=== PATIENT | female | born 1935 | race Caucasian/White ===

== ENCOUNTER 2016-07-14 17:14 | Inpatient (IN) | payer OTHER ==
[~2016-07-14] VITALS: Ht 160 cm; Wt 55.5 kg
[~2016-07-14 17:14] MED LIST: ASPIRIN81 M1; ASPIRIN81 M1 PO; CIPRO250 MG PO; FISH OIL CONC1000 M2 PO; INDAPAMIDE2.5 MG; INDAPAMIDE2.5 MG PO; LASIX20 MG PO; LASIX40 MG; LASIX40 MG PO; LOPRESSOR25 MG; METOPROLOL SUCC25 M2 PO; POTASSIUM; POTASSIUM CHLO25 MEQ PO; PRILOSEC20 M1 PO; PRILOSEC20 MG; VITAMIN E100 UNIT PO; ZOCOR20 MG; ZOCOR20 MG PO
[2016-07-14 17:31] VITALS: BP 132/80
[2016-07-14 17:57] LABS: BASO # 0.1 10*3/uL (0.0-0.1); BASO % 0.3 % (0.0-1.0); EOS % 0.1 % (1.0-4.0); HEMATOCRIT 37.7 % (37.0-47.0); HEMOGLOBIN 12.9 g/dl (12.0-16.0); IG # 0.1 10*3/uL (0.0-0.1); LYMPH # 1.7 10*3/uL (1.3-4.4); LYMPH % 9.7 % (27.0-41.0); MEAN CELL VOLUME 89.1 fl (81.0-99.0); MEAN CORPUSCULAR HGB 30.5 pg (27.0-31.0); MEAN CORPUSCULAR HGB CONC 34.2 g/dl (33.0-37.0); MEAN PLATELET VOLUME 10.4 fl (9.6-12.3); MONO # 1.3 10*3/uL (0.1-1.0); MONO % 7.6 % (3.0-9.0); NEUT # 14.1 10*3/uL (2.3-7.9); NEUT % 81.8 % (47.0-73.0); PLATELET COUNT AUTOMATED 223 10*3/uL (130-400); RED BLOOD COUNT 4.23 10*6/uL (4.10-5.10); RED CELL DISTRI WIDTH 12.8 % (0-14.5); WHITE BLOOD COUNT 17.2 10*3/uL (4.8-10.8)
[2016-07-14] MEDS ORDERED: INDOMETHACIN25 M1 PO (18:12)
[2016-07-14 18:14] LABS: ALBUMIN 3.5 gm/dl (3.1-4.5); ALKALINE PHOSPHATASE 107 U/L (45-117); BUN 15 mg/dl (7-24); CARBON DIOXIDE 27 mmol/L (21-32); CHLORIDE 95 mmol/L (98-107); EST GLOM FILT AFRICAN AMERICAN > 60 ml/min; GLUCOSE 108 mg/dL (65-99); POTASSIUM 4.1 mmol/L (3.5-5.1); SGOT/AST 14 IU/L (3-35); SGPT/ALT 11 U/L (12-78); SODIUM 131 mmol/L (136-145); TOTAL PROTEIN 7.9 gm/dL (6.4-8.2)
[2016-07-14 18:17] LABS: TROPONIN I < 0.015 ng/ml (<0.045)
[2016-07-14 19:00] VITALS: BP 128/82
[2016-07-14 20:45] VITALS: BP 161/90
[2016-07-14 21:17] VITALS: BP 161/90
[2016-07-15] VITALS: BP 120/51
[2016-07-15 00:29] LABS: CPK 38 U/L (26-192)
[2016-07-15 00:32] LABS: CKMB < 0.5 ng/ml (0.5-3.6); TROPONIN I < 0.015 ng/ml (<0.045)
[2016-07-15 06:08] LABS: CKMB 0.6 ng/ml (0.5-3.6); CPK 35 U/L (26-192)
[2016-07-15 06:09] LABS: HEMATOCRIT 36.5 % (37.0-47.0); HEMOGLOBIN 12.3 g/dl (12.0-16.0); MEAN CELL VOLUME 90.1 fl (81.0-99.0); MEAN CORPUSCULAR HGB 30.4 pg (27.0-31.0); MEAN CORPUSCULAR HGB CONC 33.7 g/dl (33.0-37.0); MEAN PLATELET VOLUME 10.4 fl (9.6-12.3); PLATELET COUNT AUTOMATED 204 10*3/uL (130-400); RED BLOOD COUNT 4.05 10*6/uL (4.10-5.10); RED CELL DISTRI WIDTH 12.8 % (0-14.5); TROPONIN I < 0.015 ng/ml (<0.045); WHITE BLOOD COUNT 10.8 10*3/uL (4.8-10.8)
[2016-07-15 06:26] LABS: HEMOGLOBIN A1c 5.1 % (4.8-5.6)
[2016-07-15 06:36] LABS: BUN 14 mg/dl (7-24); CARBON DIOXIDE 27 mmol/L (21-32); CHLORIDE 99 mmol/L (98-107); CHOLESTEROL 108 mg/dL (<200); EST GLOM FILT AFRICAN AMERICAN > 60 ml/min; FREE T4 1.36 ng/dl (0.76-1.46); GLUCOSE 161 mg/dL (65-99); HDL CHOLESTEROL 49 mg/dl (40-60); LDL CHOLESTEROL 47 mg/dL (9-159); LYMPHOCYTE # 0.5 10*3/uL (1.3-4.4); MAGNESIUM 1.8 mg/dL (1.5-2.1); MONOCYTE # 0.1 10*3/uL (0.1-1.0); NEUTROPHIL # 10.2 10*3/uL (2.3-7.9); NEUTROPHILS 94 % (47-73); PLATELET SUFFICIENCY NORMAL (NORMAL); POTASSIUM 3.5 mmol/L (3.5-5.1); SODIUM 136 mmol/L (136-145); TOTAL CELLS COUNTED 100 #CELLS; TRIGLYCERIDES 62 mg/dl (<150); VLDL CHOLESTEROL 12 mg/dL (6-40)
[2016-07-15 06:44] LABS: FOLIC ACID 13.31 ng/mL (>5.38); VITAMIN D, 25-HYDROXY 4.7 ng/mL (30-100)
[2016-07-15 08:00] VITALS: BP 115/53
[2016-07-15 12:00] VITALS: BP 145/56
[2016-07-15 16:00] VITALS: BP 123/46
[2016-07-15 20:00] VITALS: BP 135/78
[2016-07-16] VITALS: BP 138/67
[2016-07-16 08:00] VITALS: BP 137/53
[2016-07-16 12:00] VITALS: BP 135/68
[2016-07-16 16:00] VITALS: BP 160/69
[2016-07-16 20:00] VITALS: BP 120/76; BP 89/65
[2016-07-17] VITALS: BP 130/72
[2016-07-17 08:00] VITALS: BP 124/88
[2016-07-17 12:00] VITALS: BP 114/87
[2016-07-17] MEDS ORDERED: DULE1ARO INH (13:59)
[2016-07-17] MEDS ORDERED: VITAMIN D50000 I3 PO (13:59)
[2016-07-17] MEDS ORDERED: PREDNISONE10 MG PO (13:59)
[2016-07-17] MEDS ORDERED: BENZONATATE100 M1 PO (13:59)
[2016-07-17] MEDS ORDERED: LEVOFLOXACIN500 MG PO (13:59)
[2016-07-17] MEDS ORDERED: VENTOLIN H0.09 MG/AC INH (13:59)
== END 2016-07-17 15:50 | disposition home or self-care (01) | DRG 871 ==
LOC: ED 17:14 → EDHOLD 19:59 → 5E 19:59
PROVIDERS: Internal Medicine; Registered Nurse
DX: A41.9 Sepsis, unspecified organism (principal); J18.9 Pneumonia, unspecified organism; I11.0 Hypertensive heart disease with heart failure; Z95.1 Presence of aortocoronary bypass graft; I50.9 Heart failure, unspecified; E87.1 Hypo-osmolality and hyponatremia; I25.810 Atherosclerosis of coronary artery bypass graft(s) without angina pectoris; Z90.710 Acquired absence of both cervix and uterus; J45.909 Unspecified asthma, uncomplicated; E55.9 Vitamin D deficiency, unspecified; Z82.49 Family history of ischemic heart disease and other diseases of the circulatory system; Z79.82 Long term (current) use of aspirin; Z79.899 Other long term (current) drug therapy

== ENCOUNTER → 2016-12-04 | Outpatient (CLI) | payer OTHER ==
[~2016-12-04] MED LIST changes: +BENZONATATE100 M1 PO; +DULE1ARO INH; +INDOMETHACIN25 M1 PO; +LEVOFLOXACIN500 MG PO; +PREDNISONE10 MG PO; +VENTOLIN H0.09 MG/AC INH; +VITAMIN D50000 I3 PO
== END | disposition home or self-care (01) ==
LOC: RAD 12:42
DX: I70.0 Atherosclerosis of aorta (principal); J98.4 Other disorders of lung; Z95.1 Presence of aortocoronary bypass graft

== ENCOUNTER 2016-12-19 18:00 | Inpatient (IN) | payer OTHER ==
[~2016-12-19] VITALS: Ht 165.1 cm; Wt 58.6 kg
[2016-12-19 18:02] VITALS: BP 182/87
[2016-12-19 18:30] LABS: BASO % 0.4 % (0.0-1.0); EOS # 0.1 10*3/uL (0.0-0.4); EOS % 1.5 % (1.0-4.0); HEMATOCRIT 38.6 % (37.0-47.0); HEMOGLOBIN 13.4 g/dl (12.0-16.0); LYMPH # 2.2 10*3/uL (1.3-4.4); LYMPH % 23.6 % (27.0-41.0); MEAN CELL VOLUME 89.8 fl (81.0-99.0); MEAN CORPUSCULAR HGB 31.2 pg (27.0-31.0); MEAN CORPUSCULAR HGB CONC 34.7 g/dl (33.0-37.0); MEAN PLATELET VOLUME 10.3 fl (9.6-12.3); MONO # 0.6 10*3/uL (0.1-1.0); NEUT # 6.1 10*3/uL (2.3-7.9); NEUT % 67.2 % (47.0-73.0); PLATELET COUNT AUTOMATED 218 10*3/uL (130-400); RED CELL DISTRI WIDTH 12.5 % (0-14.5); WHITE BLOOD COUNT 9.1 10*3/uL (4.8-10.8)
[2016-12-19 18:40] LABS: ACT PARTIAL THROMBO TIME 25.4 SECONDS (20.8-31.5)
[2016-12-19 18:45] VITALS: BP 141/82
[2016-12-19 18:46] LABS: ALBUMIN 3.5 gm/dl (3.1-4.5); ALKALINE PHOSPHATASE 101 U/L (45-117); BUN 15 mg/dl (7-24); CHLORIDE 98 mmol/L (98-107); CKMB 1.8 ng/ml (0.5-3.6); CPK 32 U/L (26-192); LIPASE 203 U/L (73-393); MAGNESIUM 1.8 mg/dL (1.5-2.1); POTASSIUM 4.1 mmol/L (3.5-5.1); SGOT/AST 16 IU/L (3-35); SGPT/ALT 11 U/L (12-78); SODIUM 134 mmol/L (136-145); TOTAL PROTEIN 7.7 gm/dL (6.4-8.2)
[2016-12-19 18:48] LABS: TROPONIN I < 0.015 ng/ml (<0.045)
[2016-12-19 19:31] VITALS: BP 147/71
[2016-12-19 20:59] VITALS: BP 175/67
[2016-12-19 21:10] VITALS: BP 175/67
[2016-12-20] VITALS: BP 99/58
[2016-12-20] MEDS ORDERED: RIVASTIGMINE TAR6 M1 PO (00:34)
[2016-12-20 06:19] LABS: BASO % 0.2 % (0.0-1.0); HEMATOCRIT 39.1 % (37.0-47.0); HEMOGLOBIN 13.5 g/dl (12.0-16.0); LYMPH # 0.9 10*3/uL (1.3-4.4); LYMPH % 16.3 % (27.0-41.0); MEAN CELL VOLUME 90.7 fl (81.0-99.0); MEAN CORPUSCULAR HGB 31.3 pg (27.0-31.0); MEAN CORPUSCULAR HGB CONC 34.5 g/dl (33.0-37.0); MEAN PLATELET VOLUME 10.8 fl (9.6-12.3); MONO # 0.1 10*3/uL (0.1-1.0); MONO % 1.2 % (3.0-9.0); NEUT # 4.7 10*3/uL (2.3-7.9); NEUT % 81.6 % (47.0-73.0); PLATELET COUNT AUTOMATED 236 10*3/uL (130-400); RED BLOOD COUNT 4.31 10*6/uL (4.10-5.10); RED CELL DISTRI WIDTH 12.6 % (0-14.5); WHITE BLOOD COUNT 5.8 10*3/uL (4.8-10.8)
[2016-12-20 06:38] LABS: ALBUMIN 3.3 gm/dl (3.1-4.5); BUN 14 mg/dl (7-24); CHLORIDE 99 mmol/L (98-107); CHOLESTEROL 149 mg/dL (<200); CREATININE 0.69 mg/dL (0.55-1.02); MAGNESIUM 2.1 mg/dL (1.5-2.1); SGOT/AST 15 IU/L (3-35); SGPT/ALT 11 U/L (12-78); SODIUM 137 mmol/L (136-145); TOTAL PROTEIN 7.6 gm/dL (6.4-8.2); TRIGLYCERIDES 61 mg/dl (<150); VLDL CHOLESTEROL 12 mg/dL (6-40)
[2016-12-20 06:45] LABS: ALKALINE PHOSPHATASE 101 U/L (45-117); HDL CHOLESTEROL 43 mg/dl (40-60); LDL CHOLESTEROL 94 mg/dL (9-159); THYROID STIM HORMONE (HS) 0.801 uIU/ml (0.358-4.75)
[2016-12-20 06:56] LABS: ACT PARTIAL THROMBO TIME 24.5 SECONDS (20.8-31.5)
[2016-12-20 08:00] VITALS: BP 112/58; BP 139/73
[2016-12-20 12:00] VITALS: BP 153/77
[2016-12-20 16:00] VITALS: BP 152/64
[2016-12-20 20:00] VITALS: BP 135/70
[2016-12-21] VITALS: BP 129/74
[2016-12-21 08:00] VITALS: BP 122/58; BP 153/43
== END 2016-12-21 11:32 | disposition short-term general hospital (02) | DRG 194 ==
LOC: ED 18:00 → EDHOLD 19:15 → 5E 20:05
PROVIDERS: Emergency Medicine; Hospitalist; ADMIT Internal Medicine
DX: J18.9 Pneumonia, unspecified organism (principal); J45.901 Unspecified asthma with (acute) exacerbation; E87.2 Acidosis; J96.10 Chronic respiratory failure, unspecified whether with hypoxia or hypercapnia; I11.0 Hypertensive heart disease with heart failure; I50.32 Chronic diastolic (congestive) heart failure; E87.1 Hypo-osmolality and hyponatremia; I25.118 Atherosclerotic heart disease of native coronary artery with other forms of angina pectoris; E55.9 Vitamin D deficiency, unspecified; R91.1 Solitary pulmonary nodule; Z99.81 Dependence on supplemental oxygen; Z95.1 Presence of aortocoronary bypass graft; Z82.49 Family history of ischemic heart disease and other diseases of the circulatory system

== ENCOUNTER → 2016-12-31 | Outpatient (CLI) | payer OTHER ==
[~2016-12-31] MED LIST changes: +RIVASTIGMINE TAR6 M1 PO
== END | disposition home or self-care (01) ==
LOC: RAD 08:29
DX: K44.9 Diaphragmatic hernia without obstruction or gangrene (principal)

== ENCOUNTER 2017-02-20 10:01 | Inpatient (IN) | payer OTHER ==
[~2017-02-20] VITALS: Ht 167.6 cm; Wt 58.2 kg
--- NOTE | ~2017-02-20 | DS ---
[place], [place] DISCHARGE SUMMARY NAME: SHERIN WILLARD [facility] #: [id number] UNIT #: [id number] ROOM: 415 DOCTOR: MUSTAPHA MARIANO MD BIRTHDATE: [birth year] DOS: 02/21/2017 DISCHARGE DIAGNOSES: 1. Loculated pleural fluid in the right lower lobe. 2. History of large hiatal hernia, status post endoscopic surgery at [facility] recently. 3. History of coronary artery disease of kake vessels. 4. Chronic hyponatremia. 5. Chronic respiratory failure and centrilobular emphysema. 6. History of solitary pulmonary nodule in the past. 7. Vitamin D deficiency. 8. Benign essential hypertension. 9. Chronic diastolic type congestive heart failure. 10. Coronary artery disease of kake vessels without chest pains. HOSPITAL COURSE: The patient presented to the Emergency Department at [facility] [place] [facility] for some complains of shortness of breath. The patient was found to have pulse ox of 80% at room air. The patient was admitted and now she is saturating 99% at room air. The patient was evaluated for hypoxemia at admission with CT angiogram, which showed no pulmonary embolism, but shows loculated right lower lobe pleural effusion. This was evaluated by Dr. Tomlinson, the relay shop tester, and he has recommended that the patient should be sent back to the [facility] for treatment of this loculated pleural fluid because it is very complex. call was made to [facility] and they will accept the patient when they have a bed available. The patient in a stable condition to be transferred, vital signs are stable and she is asymptomatic now except for generalized weakness. Leukocytosis from urinary tract infection and pneumonitis to be treated with antibiotics. White cell count of 12,000. Lactic acid level elevation is normalized with hydration. Old age and adult failure to thrive. The patient worked with physical therapy. Coronary artery disease of kake vessels without chest pains. Chronic diastolic type CHF, compensated. Large hiatal hernia, status post endoscopic surgery at [facility] recently. We took bedsore precaution including every 2-hour turning and using an air mattress. LABORATORY DATA: White cell count of 12,200, normal H and H. CT angiogram results as mentioned above. Lactic acid level was 3 and improved with hydration with IV fluids. No signs of sepsis. DISCHARGE MANAGEMENT: Lovenox 40 mg subQ daily, furosemide 20 mg a day, potassium chloride 20 mEq daily, aspirin 81 mg a day, omeprazole 20 mg a day, simvastatin 40 mg a day. The patient on clindamycin 800 mg IV every 6 hours, [place], [place] DISCHARGE SUMMARY NAME: SHERIN WILLARD UNIT #: [id number] ROOM: 415 DOCTOR: MUSTAPHA MARIANO MD BIRTHDATE: [birth year] ceftriaxone 1 g daily. Plan to transfer to [facility] when the bed is available. MUSTAPHA MARIANO MD CM:TINA [id number] MUSTAPHA MARIANO MD 02/21/171955 interface
--- NOTE | ~2017-02-20 | CON ---
[place], [place] REPORT OF CONSULTATION NAME: SHERIN WILLARD [facility] #: [id number] UNIT #: [id number] ROOM: 415 DOCTOR: DIRK CHAPMAN MD,DEMOND BIRTHDATE: [birth year] DOS: 02/21/2017 CONSULTATION REQUESTED BY: Dr. Singh for the assessment of recurrent acute respiratory failure and abnormal finding in CT scan of the chest. History was obtained for the patient from the patient's son directly as the patient was noted as a poor historian. HISTORY OF PRESENT ILLNESS: This is an 81-year-old white female patient who has been known with history of hiatal hernia, has been admitted in [facility] over a week ago. The patient remained in the hospital for 4 days, underwent laparoscopic hiatal hernia repair as per son. The patient stayed in the hospital for 4 days and discharged home six days ago. She has been sent home with home health services. The patient reported symptoms of coughing, some shortness of breath during her hospitalization with clear sputum expectoration noted with cough. As the patient came home, she has been noted with increased shortness of breath. She was also noted increased sputum expectoration described some with purulent and progressive increased shortness of breath. Home health nurses has been assessing the patient. I recommended the patient to be brought to the hospital. The patient presented to the Emergency Room and was assessed in the ER. The patient's oxygen saturation noted 80% on room air upon arrival as assessed by the EMS. The patient was started on oxygen supplementation nasal cannula with the improvement in the oxygen saturation. She was also given one breathing treatment as well. The patient denies symptoms of chest pain. Denies symptoms of hemoptysis. The patient had a CTA of the chest done after hospitalization to rule out pulmonary embolism. The pulmonary embolism was excluded. Some other abnormal finding described in the CT scan of the chest would be noted in the lateral part of the consultation. She does have symptoms of shortness of breath which were ____ partly decreased from yesterday. Denies symptoms of hemoptysis or chest pain. Denies symptoms of rather hemoptysis. She does complain of pain which she described in the right side of the chest intermittently in the past 48 hours. The pain was described mild to moderate, pleuritic at times without any radiation. REVIEW OF SYSTEMS: CONSTITUTIONAL: Fatigue and tiredness noted without symptoms of fever or chills. EYES: Denies any burning, redness, or tenderness. EARS, NOSE, THROAT SYMPTOMS: Denies sore throat, hoarseness, otalgia, postnasal drainage or epistaxis. CARDIOVASCULAR: Denies anginal pain, edema or pain of the lower extremities. GASTROINTESTINAL: Dysphagia, nausea, vomiting, diarrhea, abdominal pain, hematemesis, melena or abnormal weight loss. SKIN: Denies any lesions or rashes. GENITOURINARY: Denies dysuria, suprapubic pain, hematuria. MUSCULOSKELETAL: Denies any acute joint pain. CENTRAL NERVOUS SYSTEM: Denies dizziness, headache, diplopia or syncopal episodes. Remaining systems were reviewed with the patient, they were noted to be all [place], [place] REPORT OF CONSULTATION NAME: SHEIRN WILLARD UNIT #: [id number] ROOM: [facility] DOCTOR: DEMOND HUANG MD BIRTHDATE: [birth year] negative. PAST MEDICAL HISTORY: 1. Reported as history of coronary artery disease. 2. Essential hypertension. 3. Previous pneumonia and hyponatremia. 4. Large hiatal hernia, laparoscopic surgical repair. 5. Vitamin D deficiency. 6. History reported for congestive heart failure. 7. History of congestive heart failure with some diastolic dysfunction reported for the patient's last echocardiogram in July 2016. PAST SURGICAL HISTORY: 1. Reported as history of coronary artery bypass graft. 2. Laparoscopic surgical repair was done in February 2017 in [facility]. SOCIAL HISTORY: The patient is currently , has 2 children. Denies history of alcohol use or any illicit drug use. She has smoked cigarettes only for a year or 2 when she was quite young. The patient has not smoked any cigarettes since the past 50 years. FAMILY HISTORY: The patient's father at the age of 48 over an industrial accident. The mother at the age of 6363 years old, complication related to the congestive heart failure. HOME MEDICATIONS: Reported the patient on admission use of albuterol sulfate, aspirin, vitamin D, Dulera, Lasix, metoprolol tartrate, Prilosec, rivastigmine, and simvastatin. DRUG ALLERGIES: Noted no known drug allergies. PHYSICAL EXAMINATION: GENERAL: This is an 81-year-old elderly female currently noted without any acute distress, getting oxygen supplementation nasal cannula. Height recorded on current admission height of 5 feet 6 inches, weight of 130 pounds. VITAL SIGNS: Normal temperature, respiratory rate 18-22, heart rate 74-77, blood pressure 139/71-148/70. Pulse oxygen saturation on 4 liters nasal cannula 99% saturation recorded. HEENT: Examination shows head was atraumatic. Eyes: No icterus. NECK: Supple. CARDIOVASCULAR: S1, S2 audible. LUNGS: Decreased breaths are noted in the left mid and lower portion of the lung. There were no crackles or wheezing heard. ABDOMEN: Soft, nontender. Bowel sounds present. EXTREMITIES: Noted without any edema, clubbing or cyanosis. CENTRAL NERVOUS SYSTEM: Cranial nerves 2-12 intact. No focal deficits. MUSCULOSKELETAL: No deformities. SKIN: No lesions or rashes. [place], [place] REPORT OF CONSULTATION NAME: SHERIN WILLARD UNIT #: [id number] ROOM: [facility] DOCTOR: ASHLI HUANG MDM BIRTHDATE: [birth year] LABORATORY DATA: CBC was done on admission yesterday in the Emergency Room noted essentially as normal. Lactic acid yesterday noted 3 and followup was 2.5. PT/PTT yesterday noted as normal. CMP was done just a normal BUN and creatinine. Sodium 133, chloride 94, remaining CMP normal. The influenza A and B, nasal washing antigens were negative. CBC of this morning, WBC count 12.2, hemoglobin 12, hematocrit 35.6, platelet count was normal. The chest x-ray was done yesterday was reviewed, does not show any major acute infiltration. Mild cardiomegaly was visible. Postoperative coronary artery bypass grafting changes. CT of the chest that was completed yesterday recorded by Dr. Singh reviewed, shows a large collection of the fluid was noted in the right lower lung with a subpulmonic effusion or extension around the previous site of hernia seen. However, significant hiatal hernia was still noted at the present time, which was noted large. Changes of bronchiectasis noted. Upper lungs noted with apical pulmonary fibrotic changes. The CT scan of the chest was compared to the previous CT scan of the chest that was done during admission in December on 12/20/2016 reviewed. At that time, the patient was noted very large hiatal hernia ____ about half or more of the right chest with area of compression atelectasis. The findings were noted. The current CT scan does show significant reduction in previously noted hiatal hernia. IMPRESSION: 1. The patient who has been currently admitted to the hospital with recurrent symptoms and signs suggestive of definitive acute pneumonia. Fluid is present, it is related to past surgical as collection postsurgery from the pneumonia would be considered complicated effusion. Ultrasound of the chest was performed at the bedside, shows multiloculated pleural present in the right lower chest. Diaphragm was not able to be well visualized. 2. Status post hiatal hernia repair, certainly noted small in the size of hiatal hernia, reexpansion of the lung on the right side. However, the moderate to large hiatal hernia was still visible. 3. The patient with history of past coronary artery disease as well. 4. Lactic acidosis related to the possibility of acute sepsis secondary to acute pneumonia or pleural fluid to be considered with possible consideration of complicated pleural fluid, rule out empyema as well. 5. Acute severe hypoxic respiratory failure secondary to above, currently being treated with oxygen supplementation. PLAN OF MANAGEMENT: The patient will be continued on the antibiotics as previously ordered. She would be considered for transfer back to the [facility] to be further assessed for current pleural fluid, which seemed to be very complicated. Further intervention to be done, possible use of the CT guidance, ultrasound guidance by another specialist. I am not comfortable placing a chest tube with doing thoracentesis of the current finding noted on the CT scan of the chest appearance. The patient would be added on treatment for the anaerobic coverage with addition of the clindamycin that will also give further coverage for the gram-positive organisms. The assessment and management has been discussed with the patient's son in detail on the phone. He was agreeable for the transfer. The case was also discussed with Dr. Singh about consideration of transfer to [facility]. The arrangements will be made for transfer to [facility]. Other supportive therapy, [place], [place] REPORT OF CONSULTATION NAME: SHERIN WILLARD UNIT #: [id number] ROOM: 415 DOCTOR: DIRK CHAPMAN MD,DEMOND BIRTHDATE: [birth year] plan of management and care. Usual medical management, other therapies. The clindamycin has been ordered as every 6 hours for anaerobic coverage. Thank you for allowing me to participate in the care of this patient. DEMOND CAVAZOS MD CM:CONSTR:REPORT OF CONSULTATION 1309 02/22/17 0631 interface
--- NOTE | ~2017-02-20 | EKG ---
[place], [place] ELECTROCARDIOGRAM REPORT NAME: SHERIN WILLARD UNIT #: [id number] ROOM: 415 DOCTOR: DIRK CHAPMAN MD,DEMOND BIRTHDATE: [birth year] DOS: 02/20/2017 TIME: 10:13 a.m. Normal sinus rhythm were noted with a heart rate of 86 beats per minute. The EKG were noted ____. Poor R-wave progression noted in the ____ chest leads for this patient as well. Nonspecific intraventricular conduction defect was also noted. Prolonged QTC interval was noted for the patient as well with QTC interval of more than 500 msec. Left axis deviation was also noted. DEMOND CAVAZOS MD CM:EKGRPT:ELECTROCARDIOGRAM REPORT [id number] 1430 DEMOND CHAPMAN MD
--- NOTE | ~2017-02-20 | WRIGHTHP ---
[place], [place] PATIENT HISTORY AND PHYSICAL EXAM NAME: SHERIN WILLARD [facility] #: [id number] UNIT #: [id number] ROOM: 415 DOCTOR: MUSTAPHA MARIANO MD BIRTHDATE: [birth year] DOS: 02/20/2017 HISTORY OF PRESENT ILLNESS: The patient is an 81-year-old female with past medical history of bronchial asthma, reactive airway disease, chronic diastolic type CHF, benign essential hypertension, coronary artery disease of [place] vessels, hyponatremia, chronic respiratory failure, oxygen dependence, history of solitary pulmonary nodule, vitamin D deficiency, benign essential hypertension. The patient presented to the Emergency Department with increasing shortness of breath starting yesterday with cough and purulent sputum. The patient was seen in the Emergency Department at [facility] for increasing shortness of breath and her pulse ox was 80% on room air. The patient recently had surgery for hiatal hernia at [facility]. The patient was diagnosed as having severe sepsis and pneumonitis and acute over chronic respiratory failure along with hyponatremia and hypochloremia and recommended for admission and further management. After admission, the patient says she is starting to feel better, but she continues to cough up purulent sputum. No dizziness or fainting episode. No complaint of chest pain, no GI or urinary symptoms. REVIEW OF SYSTEMS: LUNGS: Increasing shortness of breath, cough and purulent sputum. GASTROINTESTINAL: No nausea, vomiting, diarrhea, constipation. CARDIOVASCULAR SYSTEM: No chest pains or palpitations. FAMILY HISTORY: Noncontributory. 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 Denies any alcohol or drug abuse. HOME MEDICATIONS: Potassium, Lasix, aspirin, omeprazole, simvastatin and Zofran. PHYSICAL EXAMINATION: GENERAL: The patient is alert and oriented x 3, no visible distress except for generalized weakness. HEENT AND NECK: Extraocular movements are intact. Sclerae are anicteric. Oral mucosa is moist and clean. No obvious facial weakness. Neck is supple without any lymphadenopathy. No thyromegaly. No JVD. No carotid arterial bruits. LUNGS: Auscultation shows decreased breath sounds ____ worse with some crackles and expiratory wheezing. CARDIOVASCULAR SYSTEM: Heart rate is regular in rate and rhythm. S1 and S2 normally audible. No significant murmur or any other abnormal cardiac sounds. ABDOMEN: Soft, nontender. No obvious organomegaly. Bowel sounds are present. No obvious herniation. EXTREMITIES: Without significant cyanosis or edema. Warm to touch. CENTRAL NERVOUS SYSTEM: Alert and oriented x 3. Cranial nerves II-XII are intact. Speech is normal. The patient is able to move all extremities. Normal muscle strength. Deep tendon reflexes are equal on both sides. Plantars were downgoing. [place], [place] PATIENT HISTORY AND PHYSICAL EXAM NAME: SHERIN WILLARD UNIT #: [id number] ROOM: [facility] DOCTOR: MUSTAPHA MARIANO MD BIRTHDATE: [birth year] LABORATORY DATA: CT angiogram, normal except for some pleural effusion. Chest x-ray without any active lung disease. Sodium low at 133, chloride low at 94. Lactic acid level elevated at 3, improved to 2.5. No leucocytosis. IMPRESSION AND PLAN: 1. The patient presenting with acute hypoxemia and pneumonitis with purulent sputum. Dr. Tomlinson, the forest officer has been consulted and I will follow blood counts to look for any developing leukocytosis secondary to infection. 2. Lactic acid level elevation with hypoxemia, but no other signs of sepsis. We will get sputum cultures. 3. Old age and adult failure to thrive. The patient to work with physical therapy. 4. Coronary artery disease of the [place] vessels without chest pains. 5. Chronic diastolic type congestive heart failure. The patient treated with Lasix. 6. Mixed hyperlipidemia treated with simvastatin. 7. Old age, advanced disability and generalized weakness. The patient to work with physical therapy. We will also take bed sore precaution and use air mattress along with every 2 hour turning. MUSTAPHA MARIANO MD CM:HISPHYS:PATIENT HISTORY AND PHYSICAL EXAMINATION [id number] [phone] MUSTAPHA MARIANO MD 02/20/172118 interface
[2017-02-20 10:04] VITALS: BP 147/78
[2017-02-20 10:20] LABS: BASO % 0.4 % (0.0-1.0); EOS # 0.2 10*3/uL (0.0-0.4); EOS % 1.5 % (1.0-4.0); HEMATOCRIT 38.2 % (37.0-47.0); HEMOGLOBIN 12.7 g/dl (12.0-16.0); LYMPH # 2.7 10*3/uL (1.3-4.4); LYMPH % 24.9 % (27.0-41.0); MEAN CELL VOLUME 92.7 fl (81.0-99.0); MEAN CORPUSCULAR HGB 30.8 pg (27.0-31.0); MEAN CORPUSCULAR HGB CONC 33.2 g/dl (33.0-37.0); MEAN PLATELET VOLUME 9.5 fl (9.6-12.3); MONO # 1.1 10*3/uL (0.1-1.0); MONO % 10.2 % (3.0-9.0); NEUT # 6.7 10*3/uL (2.3-7.9); NEUT % 62.7 % (47.0-73.0); PLATELET COUNT AUTOMATED 290 10*3/uL (130-400); RED BLOOD COUNT 4.12 10*6/uL (4.10-5.10); RED CELL DISTRI WIDTH 13.2 % (0-14.5); WHITE BLOOD COUNT 10.6 10*3/uL (4.8-10.8)
[2017-02-20 10:30] LABS: ACT PARTIAL THROMBO TIME 25.2 SECONDS (20.8-31.5)
--- NOTE | 2017-02-20 10:32 | NUR ---
LACTIC ACID 3.0 PER LAB Caden CALHOUN NOTIFIED
[2017-02-20 10:36] LABS: ALBUMIN 3.4 gm/dl (3.1-4.5); ALKALINE PHOSPHATASE 97 U/L (45-117); BUN 14 mg/dl (7-24); CHLORIDE 94 mmol/L (98-107); CREATININE 0.85 mg/dL (0.55-1.02); POTASSIUM 3.7 mmol/L (3.5-5.1); SGOT/AST 21 IU/L (3-35); SGPT/ALT 20 U/L (12-78); SODIUM 133 mmol/L (136-145); TOTAL PROTEIN 7.3 gm/dL (6.4-8.2)
[2017-02-20 10:37] LABS: TROPONIN I 0.018 ng/ml (<0.045)
[2017-02-20 11:00] VITALS: BP 140/72
--- NOTE | 2017-02-20 11:07 | NUR ---
SON IN ROOM WANTS PT DR MARIANO TO BE HER PCP CLOTH SHRINKER UNIQUE NOTIFIED ADMISSION WILL BE ON HOLD CALLED AND SPOKE WITH ASHLEY CURTIS RN AND NOTIFIED HER IT WILL BE A LITTLE WHILE BEFORE WE GET ORDERS
[2017-02-20 11:17] VITALS: BP 124/68
--- NOTE | 2017-02-20 11:20 | NUR ---
IV ZITHROMAX SENT TO FLOOR WITH PT
--- NOTE | 2017-02-20 11:35 | NUR ---
A 81, admitted to , under the services of Dr. GARCÍA OSPINA,MUSTAPHA Ferrari with a diagnosis of HYPONATREMIA. Chief complaint is INCREASING SHORTNESS OF BREATH. Patient arrived via stretcher from ER. Monitor applied. Initial assessment completed. Vital signs taken and recorded. DR. GARCÍA OSPINA,MUSTAPHA Ferrari notified of admission to the unit. Orders received. See assessment for past medical history, medications and allergies. Patient and/or family oriented to unit. [facility] visitation policy reviewed. Clothing/patient valuable form completed. LANDY CURTIS
[2017-02-20] MEDS ORDERED: POTASSIUM CHLO20 ME4 PO (11:43)
--- NOTE | 2017-02-20 13:41 | NUR ---
Dr. Tomlinson was notified of consult
--- NOTE | 2017-02-20 14:17 | NUR ---
PHYSICAL THERAPY PAtient just admitted and requests no PT this date. Ill and fatigued. Thank you for this referral. Madonna Acosta,PT
[2017-02-20 16:00] VITALS: BP 154/71
--- NOTE | 2017-02-20 16:14 | NUR ---
Dr Singh was notified of CTA result and orders were recieved. Dr. Tomlinson was notified of consult.
--- NOTE | 2017-02-20 16:21 | NUR ---
nAUSEA W/ spitting up of clear to frothy mucous. IVF to off.
[2017-02-20 20:00] VITALS: BP 150/72
[2017-02-21] VITALS: BP 153/63
[2017-02-21 04:15] LABS: BILIRUBIN NEGATIVE (NEGATIVE); BLOOD TRACE-INTACT (NEGATIVE); CLARITY CLEAR (CLEAR); COLOR YELLOW (YELLOW); GLUCOSE NEGATIVE (NEGATIVE); KETONE NEGATIVE (NEGATIVE); LEUKO ESTERASE 3+ (NEGATIVE); NITRITE NEGATIVE (NEGATIVE)
[2017-02-21 04:22] LABS: WBC 31-40 wbc/hpf (0-5)
[2017-02-21 05:57] LABS: BASO % 0.2 % (0.0-1.0); EOS % 0.1 % (1.0-4.0); HEMATOCRIT 35.6 % (37.0-47.0); HEMOGLOBIN 12.1 g/dl (12.0-16.0); LYMPH # 1.6 10*3/uL (1.3-4.4); LYMPH % 13.1 % (27.0-41.0); MEAN CELL VOLUME 91.3 fl (81.0-99.0); MEAN PLATELET VOLUME 9.9 fl (9.6-12.3); MONO # 1.2 10*3/uL (0.1-1.0); MONO % 9.6 % (3.0-9.0); NEUT # 9.4 10*3/uL (2.3-7.9); NEUT % 76.4 % (47.0-73.0); PLATELET COUNT AUTOMATED 302 10*3/uL (130-400); RED CELL DISTRI WIDTH 13.2 % (0-14.5); WHITE BLOOD COUNT 12.2 10*3/uL (4.8-10.8)
[2017-02-21 08:00] VITALS: BP 148/70
--- NOTE | 2017-02-21 08:43 | NUR ---
NELA GIVEN FOR C/O N/V. WILL MONITOR.
--- NOTE | 2017-02-21 09:42 | NUR ---
NELA APPEARS EFFECTIVE. PT RESTING IN BED WITH EYES CLOSED. CALL LIGHT WITHIN REACH. WILL CONTINUE TO MONITOR.
--- NOTE | 2017-02-21 11:43 | NUR ---
CALLED TO PRAY WITH THE PATIENT PRIOR TO TRANSFER TO [facility].
[2017-02-21 12:00] VITALS: BP 139/71
[2017-02-21 16:00] VITALS: BP 150/77
--- NOTE | 2017-02-21 19:23 | NUR ---
CCDIS Discharge instructions reviewed with patient/family. Patient receptive and verbalizes understanding. Follow-up care arranged. Written instructions given to patient/family. XU KING
== END 2017-02-21 19:20 | disposition short-term general hospital (02) | DRG 871 ==
LOC: ED 10:01 → EDHOLD 10:56 → 4E 10:56
PROVIDERS: Nurse Practitioner Family; ADMIT Internal Medicine
DX: A41.9 Sepsis, unspecified organism (principal); J18.9 Pneumonia, unspecified organism; J96.21 Acute and chronic respiratory failure with hypoxia; I11.0 Hypertensive heart disease with heart failure; I50.32 Chronic diastolic (congestive) heart failure; N39.0 Urinary tract infection, site not specified; E87.8 Other disorders of electrolyte and fluid balance, not elsewhere classified; E87.1 Hypo-osmolality and hyponatremia; R65.20 Severe sepsis without septic shock; E78.2 Mixed hyperlipidemia; I25.10 Atherosclerotic heart disease of native coronary artery without angina pectoris; R62.7 Adult failure to thrive; E55.9 Vitamin D deficiency, unspecified; Z90.710 Acquired absence of both cervix and uterus; Z87.891 Personal history of nicotine dependence; Z82.49 Family history of ischemic heart disease and other diseases of the circulatory system; Z95.1 Presence of aortocoronary bypass graft; Z98.42 Cataract extraction status, left eye; Z79.899 Other long term (current) drug therapy

== ENCOUNTER 2017-03-01 21:01 | Emergency (ER) | payer OTHER ==
[~2017-03-01] VITALS: Ht 152.4 cm; Wt 55.8 kg
[~2017-03-01 21:01] MED LIST changes: +POTASSIUM CHLO20 ME4 PO
[2017-03-01 21:49] LABS: BASO # 0.1 10*3/uL (0.0-0.1); BASO % 0.4 % (0.0-1.0); EOS # 0.2 10*3/uL (0.0-0.4); EOS % 1.5 % (1.0-4.0); HEMATOCRIT 39.2 % (37.0-47.0); HEMOGLOBIN 13.4 g/dl (12.0-16.0); LYMPH # 1.4 10*3/uL (1.3-4.4); LYMPH % 9.6 % (27.0-41.0); MEAN CELL VOLUME 90.3 fl (81.0-99.0); MEAN CORPUSCULAR HGB 30.9 pg (27.0-31.0); MEAN CORPUSCULAR HGB CONC 34.2 g/dl (33.0-37.0); MEAN PLATELET VOLUME 9.4 fl (9.6-12.3); MONO # 1.3 10*3/uL (0.1-1.0); MONO % 9.2 % (3.0-9.0); NEUT # 11.3 10*3/uL (2.3-7.9); NEUT % 78.7 % (47.0-73.0); PLATELET COUNT AUTOMATED 397 10*3/uL (130-400); RED BLOOD COUNT 4.34 10*6/uL (4.10-5.10); RED CELL DISTRI WIDTH 13.3 % (0-14.5); WHITE BLOOD COUNT 14.4 10*3/uL (4.8-10.8)
[2017-03-01 22:05] LABS: ALBUMIN 3.9 gm/dl (3.1-4.5); ALKALINE PHOSPHATASE 103 U/L (45-117); BUN 12 mg/dl (7-24); CHLORIDE 91 mmol/L (98-107); CREATININE 1.02 mg/dL (0.55-1.02); LIPASE 147 U/L (73-393); POTASSIUM 4.8 mmol/L (3.5-5.1); SGOT/AST 24 IU/L (3-35); SGPT/ALT 18 U/L (12-78); SODIUM 127 mmol/L (136-145)
[2017-03-01 22:42] VITALS: BP 156/87
[2017-03-01] MEDS ORDERED: VIBRAMYCIN100 MG PO (22:52)
[2017-03-01] MEDS ORDERED: ZOFRAN ODT4 MG SL (22:52)
== END 2017-03-01 23:26 | disposition home or self-care (01) ==
LOC: ED 21:01
PROVIDERS: Physician Assistant
DX: R11.2 Nausea with vomiting, unspecified (principal); J98.11 Atelectasis; D72.829 Elevated white blood cell count, unspecified

== ENCOUNTER 2017-06-25 11:14 | Inpatient (IN) | payer OTHER ==
[~2017-06-25] VITALS: Ht 162.5 cm; Wt 62.7 kg
--- NOTE | ~2017-06-25 | WRIGHTHP ---
[place], [place] PATIENT HISTORY AND PHYSICAL EXAM NAME: SHERIN WILLARD [facility] #: [id number] UNIT #: [id number] ROOM: 419 DOCTOR: MUSTAPHA MARIANO MD BIRTHDATE: [birth year] DOS: 06/25/2017 HISTORY OF PRESENT ILLNESS: The patient is an 82-year-old female who presented to my office with increasing shortness of breath, feeling quite weak, wheezing and dyspnea on exertion. The patient has previous history of congestive heart failure and COPD. I diagnosed her as having acute exacerbation of COPD with increasing shortness of breath despite of treatment at home and admitted her to [place] [facility] for further evaluation with a chest x-ray, blood counts, electrolytes and treatment with corticosteroids, oxygen, antibiotics and nebulizers. The patient has significant purulent cough and sputum cultures to be performed. No chest pain, no other GI or urinary symptoms. REVIEW OF SYSTEMS: LUNGS: Increasing shortness of breath and wheezing. GASTROINTESTINAL: No nausea, vomiting, diarrhea or constipation. CARDIOVASCULAR: No chest pain or palpitations. FAMILY HISTORY: Noncontributory. HOME MEDICATIONS: The patient takes potassium, omeprazole, furosemide, Lipitor, aspirin, DuoNeb, metoclopramide. ALLERGIES: No known drug allergies. PHYSICAL EXAMINATION: GENERAL: Alert and oriented x 3, in no visible distress, but still is having some respiratory difficulty and has significant cough and quite weak. VITAL SIGNS: Blood pressure 144/82, heart rate 95 beats per minute, breathing 18 times per minute, temperature of 99 degrees Fahrenheit. HEENT AND NECK: Extraocular movements are intact. Sclerae are anicteric. Oral mucosa is moist and clean. No obvious facial weakness. Neck is supple without any lymphadenopathy. No thyromegaly. No JVD. No carotid arterial bruits. LUNGS: Decreased breath sounds and scattered expiratory wheezing and generalized weakness. CARDIOVASCULAR SYSTEM: Heart rate is regular in rate and rhythm. S1 and S2 normally audible. No significant murmur or any other abnormal cardiac sounds. ABDOMEN: Soft, nontender. No obvious organomegaly. Bowel sounds are present. No obvious herniation. EXTREMITIES: Without significant cyanosis or edema. Warm to touch. CENTRAL NERVOUS SYSTEM: Alert and oriented x 3. Cranial nerves II-XII are intact. Speech is normal. The patient is able to move all extremities. Normal muscle strength. Deep tendon reflexes are equal on both sides. Plantars were downgoing. LABORATORY DATA: Chest x-ray results are pending. CBC, CMP and BMP have been ordered. IMPRESSION: 1. The patient with acute exacerbation of chronic obstructive pulmonary disease [place], [place] PATIENT HISTORY AND PHYSICAL EXAM NAME: SHERIN WILLARD UNIT #: [id number] ROOM: 419 DOCTOR: MUSTAPHA MARIANO MD BIRTHDATE: [birth year] with wheezing, shortness of breath and dyspnea on exertion. The patient is 82 years old and was admitted and started on physical therapy, DuoNeb inhalation treatments along with IV azithromycin and the chest x-ray has been ordered, but not reported. 2. History of combined systolic, diastolic type congestive heart failure with history of loculated pleural effusion in the past. Chest x-ray results are still pending. 3. Old age, advanced disability and adult failure to thrive. The patient to work with physical therapy. 4. Mixed hyperlipidemia treated with Lipitor. 5. Gastroesophageal reflux disease and esophagitis treated with omeprazole. The patient to be watched closely on a monitored bed. She maintains a full code status. MUSTAPHA MARIANO MD CM:HISPHYS:PATIENT HISTORY AND PHYSICAL EXAMINATION 1635 [id number] MUSTAPHA MARIANO MD 06/25/17 1741 interface
--- NOTE | ~2017-06-25 | PR ---
[place], [place] PROGRESS NOTE NAME: SHERIN WILLARD [facility] #: [id number] UNIT #: [id number] ROOM: 419 DOCTOR: MUSTAPHA MARIANO MD BIRTHDATE: [birth year] DOS: 06/27/2017 SUBJECTIVE: The patient is starting to feel better, breathing better now. OBJECTIVE: VITAL SIGNS: Blood pressure 147/80, heart rate of 84 beats per minute, breathing normally, afebrile, pulse ox of 98%, ASSESSMENT AND PLAN: 1. Hypokalemia, replaced with extra potassium supplements. I will repeat serum electrolytes tomorrow. 2. Acute exacerbation of severe underlying chronic obstructive pulmonary disease with improvement in breathing with use of antibiotics, oxygen and bronchodilators. 3. History of combined systolic, diastolic type congestive heart failure with history of loculated pleural effusion in the past, which did not show up on chest x-ray during this admission. 4. Gastroesophageal reflux disease and esophagitis treated with omeprazole. 5. Mixed hyperlipidemia treated with Lipitor. 6. Old age and advanced disability with adult failure to thrive. The patient working with physical therapy. MUSTAPHA MARIANO MD CM:PNTRANS 1734 [id number] MUSTAPHA MARIANO MD 06/28/17 0048 interface
--- NOTE | ~2017-06-25 | PR ---
[place], [place] PROGRESS NOTE NAME: SHERIN WILLARD UNIT #: [id number] ROOM: 419 DOCTOR: MUSTAPHA MARIANO MD BIRTHDATE: [birth year] DOS: 06/28/2017 SUBJECTIVE: The patient is very weak, barely got up with help from nursing staff and got tired soon as she started walking. The patient has been on physical therapy. OBJECTIVE: GENERAL APPEARANCE: The patient is alert and oriented x 3, in no visible distress. Generalized weakness. VITAL SIGNS: Blood pressure 133/63, heart rate of 92 beats per minute, breathing 18 times per minute, afebrile. HEENT AND NECK: Exam within normal limits. CARDIOVASCULAR SYSTEM: Heart rate is regular in rate and rhythm. S1 and S2 normally audible. LUNGS: Clear to auscultation. ABDOMEN: Soft, nontender. No obvious organomegaly. Bowel sounds are present. EXTREMITIES: Without significant cyanosis or edema. IMPRESSION: 1. Advanced adult failure to thrive, generalized weakness and dyspnea on exertion. The patient has been on physical therapy and apparently requires placement to [facility] for rehabilitation. 2. Acute exacerbation of severe underlying chronic obstructive pulmonary disease, being treated and improving. The patient is on bronchodilators, antibiotic. 3. Hypokalemia, replaced with extra potassium supplements. Repeat potassium level is normal now. 4. Gastroesophageal reflux disease and esophagitis, asymptomatic with omeprazole. 5. Mixed hyperlipidemia is being treated with Lipitor. 6. Old age, advanced disability and adult failure to thrive. 7. 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 [place], [place] PROGRESS NOTE NAME: SHERIN WILLARD UNIT #: [id number] ROOM: 419 DOCTOR: MUSTAPHA MARIANO MD BIRTHDATE: [birth year] MUSTAPHA MARIANO MD CM:PNTRANS 1605 2256 MUSTAPHA MARIANO MD 06/28/17 2254 interface
--- NOTE | ~2017-06-25 | PR ---
[place], [place] PROGRESS NOTE NAME: SHERIN WILLARD UNIT #: [id number] ROOM: 419 DOCTOR: MUSTAPHA MARIANO MD BIRTHDATE: [birth year] DOS: 06/29/2017 SUBJECTIVE: The patient is breathing somewhat better, but very weak and has dyspnea on exertion. OBJECTIVE: GENERAL APPEARANCE: The patient is alert and oriented x 3, in no visible distress. Generalized weakness. VITAL SIGNS: Blood pressure 149/80, heart rate of 88 beats per minute, breathing 20 times per minute, temperature 98 degrees Fahrenheit. HEENT AND NECK: Exam within normal limits. CARDIOVASCULAR SYSTEM: Heart rate is regular in rate and rhythm. S1 and S2 normally audible. LUNGS: Clear to auscultation. ABDOMEN: Soft, nontender. No obvious organomegaly. Bowel sounds are present. EXTREMITIES: Without significant cyanosis or edema. IMPRESSION: 1. The patient with severe dyspnea on exertion and fatigue, needs placement to a penit[facility]iary facility for rehabilitation. She still has her chronic cough, but breathing has improved. 2. Adult failure to thrive. The patient working with physical therapy and is being transferred to penitentiary facility for rehabilitation. Normally, the patient lives at home. 3. Acute exacerbation of severe underlying chronic obstructive pulmonary disease, continues to improve with treatment. 4. Hypokalemia, resolved with extra potassium supplements. 5. Gastroesophageal reflux disease and esophagitis, asymptomatic with omeprazole. 6. Mixed hyperlipidemia. The patient remains on Lipitor. 7. Old age and advanced disability and adult failure to thrive. 8. 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 Chest x-ray with no acute abnormality. [place], [place] PROGRESS NOTE NAME: SHERIN WILLARD UNIT #: [id number] ROOM: 419 DOCTOR: MUSTAPHA MARIANO MD BIRTHDATE: [birth year] MUSTAPHA MARIANO MD CM:PNTRANS 1300 [id number] MUSTAPHA MARIANO MD 06/29/17 1320 interface
--- NOTE | ~2017-06-25 | DS ---
[place], [place] DISCHARGE SUMMARY NAME: SHERIN WILLARD UNIT #: [id number] ROOM: 419 DOCTOR: MUSTAPHA MARIANO MD BIRTHDATE: [birth year] DOS: 06/30/2017 DISCHARGE DIAGNOSES: 1. Acute over chronic respiratory failure with acute exacerbation of chronic obstructive pulmonary disease and dyspnea on exertion. 2. Ambulatory dysfunction, adult failure to thrive and dyspnea on exertion. 3. Combined systolic, diastolic type congestive heart failure, chronic. 4. Mixed hyperlipidemia. 5. Gastroesophageal reflux disease and esophagitis. HOSPITAL COURSE: The patient presented to my office with visible shortness of breath and difficulty with breathing. The patient had significant dyspnea on exertion with walking 10 steps and she lives at home. The patient's pulse ox is good, but she was tachypneic and she was admitted to [facility] with dyspnea with slightest exertion and acute over chronic respiratory failure and acute exacerbation of COPD. The patient's breathing is improved, but she still has significant dyspnea on exertion, adult failure to thrive and difficulty ambulating. The patient worked with physical therapy, which will be continued on alf facility at correction before she is discharged to home. 1. 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 2. Mixed hyperlipidemia treated with Lipitor. 3. Gastroesophageal reflux disease and esophagitis treated with omeprazole. LABORATORY DATA: Sputum culture grew yeast. Normal serum electrolytes. Chest x-ray without acute abnormality, but it did show emphysema. Hemoglobin 11.7, no leukocytosis. DISCHARGE MANAGEMENT: Potassium chloride 20 mEq daily, furosemide 20 mg daily, aspirin 81 mg a day, omeprazole 20 mg a day, Tylenol 1000 mg every 6 hours p.r.n. for pain and fever, Lipitor 40 mg a day, DuoNeb q.i.d., metoclopramide 5 mg a.c. and at bedtime., Pulmicort 0.5 mg b.i.d., Augmentin 875 mg twice a day for a week. [place], [place] DISCHARGE SUMMARY NAME: SHERIN WILLARD UNIT #: [id number] ROOM: 419 DOCTOR: MUSTAPHA MARIANO MD BIRTHDATE: [birth year] MUSTAPHA MARIANO MD CM:TINA 19 [phone] MUSTAPHA MARIANO MD 06/30/17 2249 interface
[~2017-06-25 11:14] MED LIST changes: +VIBRAMYCIN100 MG PO; +ZOFRAN ODT4 MG SL
[2017-06-25 11:15] VITALS: BP 144/82
[2017-06-25] MEDS ORDERED: REGLAN5 MG PO (11:36)
[2017-06-25] MEDS ORDERED: LIPITOR40 MG PO (11:36)
[2017-06-25 12:00] VITALS: BP 144/82
[2017-06-25 16:00] VITALS: BP 137/57
[2017-06-25 20:00] VITALS: BP 122/60
[2017-06-26] VITALS: BP 120/55
[2017-06-26 06:38] LABS: HEMOGLOBIN 11.7 g/dl (12.0-16.0); MEAN CELL VOLUME 87.2 fl (81.0-99.0); MEAN CORPUSCULAR HGB CONC 34.4 g/dl (33.0-37.0); MEAN PLATELET VOLUME 10.6 fl (9.6-12.3); PLATELET COUNT AUTOMATED 177 10*3/uL (130-400); RED CELL DISTRI WIDTH 13.3 % (0-14.5); WHITE BLOOD COUNT 5.9 10*3/uL (4.8-10.8)
[2017-06-26 06:42] LABS: BUN 17 mg/dl (7-24); CHLORIDE 94 mmol/L (98-107); CREATININE 0.77 mg/dL (0.55-1.02); POTASSIUM 3.1 mmol/L (3.5-5.1); SODIUM 133 mmol/L (136-145)
[2017-06-26 07:36] LABS: ATYPICAL LYMPHS 3 % (0-0); PLATELET SUFFICIENCY NORMAL (NORMAL); TOTAL CELLS COUNTED 100 #CELLS
[2017-06-26 08:00] VITALS: BP 129/67
[2017-06-26 12:00] VITALS: BP 146/67
[2017-06-26 16:00] VITALS: BP 133/54
[2017-06-26 20:00] VITALS: BP 153/68
[2017-06-27] VITALS: BP 129/83
[2017-06-27 07:48] VITALS: BP 140/68
[2017-06-27 08:00] VITALS: BP 147/67
[2017-06-27 12:00] VITALS: BP 156/75
[2017-06-27 16:00] VITALS: BP 147/80
[2017-06-27 20:00] VITALS: BP 151/76
[2017-06-28] VITALS: BP 136/85
[2017-06-28 06:33] LABS: CHLORIDE 97 mmol/L (98-107); CREATININE 0.56 mg/dL (0.55-1.02)
[2017-06-28 06:49] LABS: SODIUM 136 mmol/L (136-145)
[2017-06-28 06:57] LABS: BUN 7 mg/dl (7-24); POTASSIUM 4.1 mmol/L (3.5-5.1)
[2017-06-28 07:44] VITALS: BP 149/96
[2017-06-28 12:00] VITALS: BP 133/63
[2017-06-28 16:00] VITALS: BP 150/78
[2017-06-28 20:00] VITALS: BP 112/66
[2017-06-29] VITALS: BP 140/74
[2017-06-29 08:00] VITALS: BP 149/80
[2017-06-29 12:00] VITALS: BP 142/70
[2017-06-29 16:00] VITALS: BP 144/66
[2017-06-29 20:00] VITALS: BP 131/55; BP 144/66
[2017-06-30] VITALS: BP 106/80
[2017-06-30 08:00] VITALS: BP 153/69
[2017-06-30 12:00] VITALS: BP 151/76
[2017-06-30] MEDS ORDERED: DUONEB 3 MG/3 ML3 M1 NEB (18:57)
[2017-06-30] MEDS ORDERED: AUGMENTIN 875-875 MG PO (18:57)
[2017-06-30 20:00] VITALS: BP 140/71
[2017-07-01] VITALS: BP 164/93
[2017-07-01 08:00] VITALS: BP 136/70
== END 2017-07-01 13:42 | disposition other institution (70) | DRG 189 ==
LOC: 4E 11:14
PROVIDERS: Internal Medicine
DX: J96.20 Acute and chronic respiratory failure, unspecified whether with hypoxia or hypercapnia (principal); I50.42 Chronic combined systolic (congestive) and diastolic (congestive) heart failure; J44.1 Chronic obstructive pulmonary disease with (acute) exacerbation; E87.6 Hypokalemia; R62.7 Adult failure to thrive; E78.2 Mixed hyperlipidemia; R26.9 Unspecified abnormalities of gait and mobility; K21.0 Gastro-esophageal reflux disease with esophagitis; Z79.82 Long term (current) use of aspirin; Z79.899 Other long term (current) drug therapy

== ENCOUNTER 2017-07-08 14:52 | Emergency (ER) | payer OTHER ==
[~2017-07-08] VITALS: Wt 68.0 kg
[~2017-07-08 14:52] MED LIST changes: +AUGMENTIN 875-875 MG PO; +DUONEB 3 MG/3 ML3 M1 NEB; +LIPITOR40 MG PO; +REGLAN5 MG PO
[2017-07-08 15:20] LABS: BASO % 0.4 % (0.0-1.0); EOS # 0.1 10*3/uL (0.0-0.4); EOS % 0.7 % (1.0-4.0); HEMATOCRIT 33.3 % (37.0-47.0); HEMOGLOBIN 11.2 g/dl (12.0-16.0); LYMPH # 1.1 10*3/uL (1.3-4.4); LYMPH % 11.2 % (27.0-41.0); MEAN CELL VOLUME 89.3 fl (81.0-99.0); MEAN CORPUSCULAR HGB CONC 33.6 g/dl (33.0-37.0); MEAN PLATELET VOLUME 9.1 fl (9.6-12.3); MONO # 0.7 10*3/uL (0.1-1.0); MONO % 7.6 % (3.0-9.0); NEUT # 7.5 10*3/uL (2.3-7.9); NEUT % 79.8 % (47.0-73.0); PLATELET COUNT AUTOMATED 282 10*3/uL (130-400); RED BLOOD COUNT 3.73 10*6/uL (4.10-5.10); RED CELL DISTRI WIDTH 13.1 % (0-14.5); WHITE BLOOD COUNT 9.4 10*3/uL (4.8-10.8)
[2017-07-08 15:34] LABS: ALKALINE PHOSPHATASE 99 U/L (45-117); BUN 14 mg/dl (7-24); CHLORIDE 98 mmol/L (98-107); CREATININE 0.51 mg/dL (0.55-1.02); SGOT/AST 16 IU/L (3-35); SGPT/ALT 10 U/L (12-78); SODIUM 135 mmol/L (136-145); TOTAL PROTEIN 7.3 gm/dL (6.4-8.2)
[2017-07-08 15:35] LABS: BILIRUBIN NEGATIVE (NEGATIVE); BLOOD 1+ (NEGATIVE); CLARITY SL CLOUDY (CLEAR); COLOR YELLOW (YELLOW); GLUCOSE NEGATIVE (NEGATIVE); KETONE NEGATIVE (NEGATIVE); LEUKO ESTERASE 3+ (NEGATIVE); NITRITE NEGATIVE (NEGATIVE); PH 7.5 (5.0-9.0)
[2017-07-08 15:44] LABS: BACTERIA 3+
[2017-07-08 15:45] LABS: WBC 51-100 wbc/hpf (0-5)
[2017-07-08 15:55] VITALS: BP 149/71
[2017-07-08] MEDS ORDERED: MACROBID100 M1 PO (15:55)
== END 2017-07-08 15:58 | disposition other institution (70) ==
LOC: ED 14:52
PROVIDERS: Nurse Practitioner Family
DX: N39.0 Urinary tract infection, site not specified (principal); R31.9 Hematuria, unspecified; Z90.710 Acquired absence of both cervix and uterus; Z95.1 Presence of aortocoronary bypass graft; Z98.890 Other specified postprocedural states; Z79.82 Long term (current) use of aspirin; Z79.899 Other long term (current) drug therapy

== ENCOUNTER 2018-09-24 10:52 | Inpatient (IN) | payer OTHER ==
[~2018-09-24] VITALS: Ht 167.6 cm; Wt 65.0 kg
--- NOTE | ~2018-09-24 | PR ---
[place], [place] PROGRESS NOTE [id number] UN[facility] #: [id number] ROOM: 408 DOCTOR: MUSTAPHA MARIANO MD BIRTHDATE: [birth year] DOS: 09/29/2018 SUBJECTIVE: The patient underwent EGD today by Dr. Dawson. OBJECTIVE: GENERAL APPEARANCE: The patient is alert and oriented x 3, in no visible distress. Generalized weakness VITAL SIGNS: Blood pressure 140/68, heart rate 55 beats per minute, breathing 20 times per minute, temperature 98 degrees Fahrenheit. HEENT AND NECK: Exam within normal limits. CARDIOVASCULAR SYSTEM: Heart rate is regular in rate and rhythm. S1 and S2 normally audible. LUNGS: Clear to auscultation. ABDOMEN: Soft, nontender. No obvious organomegaly. Bowel sounds are present. EXTREMITIES: Without significant cyanosis or edema. IMPRESSION: 1. The patient with large hiatal hernia, has reflux esophagitis, retained food debris. The patient does not appear to be a good candidate for surgery for the very large hiatal hernia as evaluated by Dr. Dawson. 2. Advance disability and adult failure to thrive. The patient hopefully will be discharged home tomorrow after completing her treatment. 3. Gastroesophageal reflux disease and esophagitis, treated with omeprazole. 4. Benign essential hypertension. Blood pressure monitored and treated. 5. Acute over chronic combined systolic/diastolic type congestive heart failure, compensated now treated with diuresis. MUSTAPHA MARIANO MD CM:PNTRANS 1708 1 MUSTAPHA MARIANO MD 09/30/18220 interface
--- NOTE | ~2018-09-24 | EKG ---
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
--- NOTE | ~2018-09-24 | O ---
[place], [place] OPERATIVE NOTE NAME: SHERIN WILLARD UNIT #: [id number] ROOM: 408 DOCTOR: LITO OSPINA,DWAYNE BIRTHDATE: [birth year] DOS: 09/29/2018 INDICATIONS: The patient has presented with chief complaint of epigastric distress, abdominal pain, nausea, atypical chest pain, undergoing investigation. PROCEDURE: Today's procedure part of investigation is panendoscopy plus biopsy. PREMEDICATION: Propofol. SCOPE: Olympus forward-viewing gastroscope Q10 video. REPORT: After putting the patient in left lateral position and application of lubricant to the scope, the scope was introduced. Thereafter, under direct visualization, advanced through the length of esophagus without difficulty. Esophagus cervicothoracic distally carefully. This evidence of esophagitis throughout the entire length of esophagus secondary to reflux noticed. Gastric pouch was entered after passing through a very large hiatal hernia, retained food and debris in the gastric pouch was noticed. Duodenal bulb, second and third part within normal limits. Large hiatal hernia, retained food was photographed. The patient extubated, tolerated the procedure well. IMPRESSION: Reflux esophagitis, very large hiatal hernia, gastritis, retained food debris. PLAN AND DISCUSSION: We are going to continue with Protonix 40 mg day. We are going to continue with antireflux measures. We are going to address dietary management as well as addition of Gaviscon 1 at bedtime, addition of Reglan 5 mg to continue 5 mg before meals and at bedtime. Unfortunately her status of health may not allow major Thoracic Surgery for fixation of hiatal hernia. DWAYNE MORSE MD CM:OPRECORD:OPERATIVE NOTE 1619 1628 DWAYNE MORSE MD 10/20/18 0742 interface
--- NOTE | ~2018-09-24 | PR ---
[place], [place] PROGRESS NOTE [id number] UN[facility] #: [id number] ROOM: 408 DOCTOR: MUSTAPHA MARIANO MD BIRTHDATE: [birth year] DOS: 09/27/2018 SUBJECTIVE: The patient continues to feel better. OBJECTIVE: GENERAL APPEARANCE: The patient is alert and oriented x 3, in no visible distress. VITAL SIGNS: Blood pressure 143/61, heart rate of 70 beats per minute, breathing 18 times per minute, temperature 98.3 degrees Fahrenheit. HEENT AND NECK: Exam within normal limits. CARDIOVASCULAR SYSTEM: Heart rate is regular in rate and rhythm. S1 and S2 normally audible. LUNGS: Clear to auscultation. ABDOMEN: Soft, nontender. No obvious organomegaly. Bowel sounds are present. EXTREMITIES: Without significant cyanosis or edema. NEUROLOGIC: Generalized weakness. IMPRESSION: 1. The patient has nobody at home to take care of her anymore and requires group home for rehabilitation for generalized weakness. 2. Normal cardiac stress test with normal left ventricular ejection fraction. 3. Advanced disability, adult failure to thrive. The patient requires inpatient rehabilitation. 4. The patient has history of esophageal dilatation and recent nausea, vomiting and hematemesis. Dr. Dawson has been consulted for EGD. 5. Gastroesophageal reflux disease and esophagitis. The patient takes omeprazole. She is still having difficulty with some regurgitation and vomiting after eating and showing dilatation of the distal esophagus. 6. Benign essential hypertension. Blood pressure is being monitored and treated. 7. Acute over chronic combined systolic/diastolic type congestive heart failure, treated with diuresis. MUSTAPHA MARIANO MD CM:PNTRANS 1639 0158 MUSTAPHA MARIANO MD 09/28/18 0158 interface
--- NOTE | ~2018-09-24 | ST ---
[place], [place] EXERCISE STRESS TEST REPORT [id number] UN[facility] #: [id number] ROOM: 408 DOCTOR: JH OSPINA,MARIJA BIRTHDATE: [birth year] DOS: 09/27/2018 LEXISCAN STRESS TEST REASON FOR TEST: Congestive heart failure and elevated troponin. PHYSICAL EXAMINATION NECK: Supple. LUNGS: Clear anteriorly. HEART: Regular rhythm. PROTOCOL: Lexiscan protocol. Maximum heart rate 84. Peak blood pressure 110/60. SYMPTOMS: The patient is chest pain free. EKG: Resting EKG showed sinus rhythm. Stress EKG showed no ischemia, no arrhythmias. CONCLUSION: Clinically, the patient is chest pain free. EKG is nonischemic. POST-STRESS COMPLICATIONS: None. The patient received a total of 0.4 mg Lexiscan. MARIJA PEÑALOZA MD CM:STRESS:EXERCISE STRESS TEST REPORT [id number] [id number] MARIJA PEÑALOZA MD
--- NOTE | ~2018-09-24 | WRIGHTHP ---
[place], [place] PATIENT HISTORY AND PHYSICAL EXAM NAME: SHERIN WILLARD [facility] #: [id number] UNIT #: [id number] ROOM: 408 DOCTOR: MUSTAPHA MARIANO MD BIRTHDATE: [birth year] DOS: 09/24/2018 HISTORY OF PRESENT ILLNESS: The patient is an 83-year-old female with previous history of: 1. Coronary artery disease and coronary artery bypass grafts. 2. CHF that is combined systolic/diastolic type CHF. 3. Benign essential hypertension. 4. Mixed hyperlipidemia. 5. GERD and esophagitis. 6. Pulmonary nodule. 7. Ambulatory dysfunction. 8. COPD. The patient presented to the Emergency Department with increasing shortness of breath, leg edema and some nausea and vomiting for a few days. The patient was found to be in acute congestive heart failure and she was recommended for admission and further management. Ultrasound of the gallbladder was also performed because of recurrent nausea and vomiting, which was normal. Although, the patient has cholelithiasis, but no biliary obstruction. There was some dilatation of the distal esophagus. After admission, the patient's nausea and vomiting have improved with Zofran. No chest pains. REVIEW OF SYSTEMS: RESPIRATORY: Increasing shortness of breath. GASTROINTESTINAL: The patient with nausea and vomiting. No abdominal pains. CARDIOVASCULAR: No chest pains or palpitations. FAMILY HISTORY: Noncontributory. MEDICATIONS: Potassium chloride, aspirin, omeprazole, metoclopramide. PHYSICAL EXAMINATION: GENERAL: Alert, oriented, not a good historian, in no visible distress, except for generalized weakness. VITAL SIGNS: Blood pressure 152/81, heart rate 80 beats per minute, breathing 18 times per minute, temperature 98 degrees Fahrenheit. HEENT AND NECK: Extraocular movements are intact. Sclerae are anicteric. Oral mucosa is moist and clean. No obvious facial weakness. Neck is supple without any lymphadenopathy. No thyromegaly. No JVD. No carotid arterial bruits. LUNGS: Clear to auscultation. No wheezing. No rhonchi. CARDIOVASCULAR SYSTEM: Heart rate is regular in rate and rhythm. S1 and S2 normally audible. No significant murmur or any other abnormal cardiac sounds. ABDOMEN: Soft, nontender. No obvious organomegaly. Bowel sounds are present. No obvious herniation. EXTREMITIES: Without significant cyanosis or edema. Warm to touch. CENTRAL NERVOUS SYSTEM: Alert and oriented x 3. Cranial nerves II-XII are intact. Speech is normal. The patient is able to move all extremities. Normal muscle strength. Deep tendon reflexes are equal on both sides. Plantars were downgoing. [place], [place] PATIENT HISTORY AND PHYSICAL EXAM NAME: SHERIN WILLARD UNIT #: [id number] ROOM: 408 DOCTOR: MUSTAPHA MARIANO MD BIRTHDATE: [birth year] IMPRESSION: 1. The patient with acute over chronic combined systolic/diastolic type congestive heart failure, being treated with diuresis. Cardiology consulted. 2. Slight elevation of troponin level. Cardiology consulted. Cardiac enzymes are being performed. 3. Dilatation of the distal esophagus and recurrent nausea, vomiting. I will consult Dr. Dawson for an evaluation for the moderate hiatal hernia. 4. History of chronic obstructive pulmonary disease with acute exacerbation of chronic obstructive pulmonary disease with some shortness of breath, to be treated with DuoNeb and oxygen as needed. 5. Serum electrolytes to be monitored and treated because of the diuresis. 6. History of chronic nausea and vomiting with the patient being on Reglan with acute vomiting being treated with Zofran with good results. 7. Gastroesophageal reflux disease and esophagitis. Continue omeprazole. 8. Ambulatory dysfunction. The patient to be started on physical therapy. MUSTAPHA MARIANO MD CM:HISPHYS:PATIENT HISTORY AND PHYSICAL EXAMINATION 15 34 MUSTAPHA MARIANO MD 09/24/181934 interface
--- NOTE | ~2018-09-24 | EKG ---
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
--- NOTE | ~2018-09-24 | PR ---
[place], [place] PROGRESS NOTE NAME: SHERIN WILLARD UNIT #: [id number] ROOM: 408 DOCTOR: MARIJA PEÑALOZA MD BIRTHDATE: [birth year] DOS: 09/27/2018 CARDIOLOGY FOLLOWUP VISIT NOTE REASON FOR VISIT: Congestive heart failure, elevated troponin. HISTORY OF PRESENT ILLNESS: The patient is feeling better. Denies any chest pain. Breathing is much better. No PND, no orthopnea, no shortness of breath, no palpitation or dizziness. No nausea or vomiting. No bladder or bowel symptoms. REVIEW OF SYSTEMS: Review of 8 systems negative except as mentioned above. RHYTHM STRIPS: The patient was in sinus rhythm. PHYSICAL EXAMINATION: VITAL SIGNS: Blood pressure 120/69, pulse 69, respiratory rate was 16. GENERAL: Alert, comfortable, in no acute distress. HEENT: Pupils are round and equal, no jaundice. NECK: Supple. No distended neck veins. CHEST: Symmetrical, nontender. LUNGS: A few scattered rhonchi, but good air entry bilaterally. HEART: Regular rhythm, no S3. Grade 1/6 systolic murmur. ABDOMEN: Benign, nontender. Bowel sounds normal. EXTREMITIES: Showed trace edema. Distal pulses palpable. SKIN: Warm and dry. No cyanosis, no clubbing. RECTAL: Deferred. DIAGNOSTIC TESTS: A 2D echo, EF 60%. Stage 1 diastolic dysfunction and mild tricuspid regurgitation. IMPRESSION: 1. Acute on chronic heart failure with preserved ejection fraction, significantly improved. 2. Borderline elevation of troponin, possibly type 2 non-ST elevation myocardial infarction from her congestive heart failure exacerbation. 3. Coronary artery disease, status post bypass surgery. 4. Mild tricuspid regurgitation. RECOMMENDATIONS: 1. Continue current medication. 2. Lexiscan stress test today. 3. A 2D echo reviewed, showed normal LV function. 4. If stress test is unremarkable and no significant evidence of ischemia, the patient can be discharged home today or tomorrow. 5. No family at bedside at the time of my examination. [place], [place] PROGRESS NOTE NAME: SHERIN WILLARD UNIT #: [id number] ROOM: 408 DOCTOR: MARIJA PEÑALOZA MD BIRTHDATE: [birth year] MARIJA PEÑALOZA MD CM:PNTRANS 1851 0250 MARIJA PEÑALOZA MD 10/22/18 0737 interface
--- NOTE | ~2018-09-24 | PR ---
[place], [place] PROGRESS NOTE NAME: [id number] UN[facility] #: [id number] ROOM: 408 DOCTOR: MUSTAPHA MARIANO MD BIRTHDATE: [birth year] DOS: 09/26/2018 SUBJECTIVE: The patient continues to feel better. OBJECTIVE: GENERAL APPEARANCE: The patient is alert and oriented x 3, in no visible distress. Generalized weakness. VITAL SIGNS: Blood pressure 121/64, heart rate of 62 beats per minute, breathing 18 times per minute, temperature of 98 degrees Fahrenheit. HEENT AND NECK: Exam within normal limits. CARDIOVASCULAR SYSTEM: Heart rate is regular in rate and rhythm. S1 and S2 normally audible. LUNGS: Clear to auscultation. ABDOMEN: Soft, nontender. No obvious organomegaly. Bowel sounds are present. EXTREMITIES: Without significant cyanosis or edema. IMPRESSION: 1. The patient with acute over chronic combined systolic/diastolic type congestive heart failure, being treated with diuresis. Cardiology following. 2. Minimally elevated troponin I levels. The patient is scheduled for a cardiac stress test by Cardiology tomorrow. 3. Esophageal dilatation with history of recurrent nausea and vomiting. Dr. Dawson has been consulted for recurrent vomiting. She requires an EGD. She also has a moderate hiatal hernia. 4. Acute exacerbation of chronic obstructive pulmonary disease and shortness of breath, being treated. The patient is on oxygen. 5. Hypokalemia from diuresis, replaced with extra potassium supplements, potassium levels were normal today. 6. Gastroesophageal reflux disease and esophagitis, being treated with omeprazole. The patient requires EGD for further evaluation. 7. Benign essential hypertension, treated and controlled. MUSTAPHA MARIANO MD CM:PNTRANS 1754 0050 MUSTAPHA MARIANO MD 09/27/18 0049 interface
--- NOTE | ~2018-09-24 | PR ---
[place], [place] PROGRESS NOTE NAME: SHERIN WILLARD UNIT #: [id number] ROOM: 408 DOCTOR: MUSTAPHA MARIANO MD BIRTHDATE: [birth year] DOS: 09/25/2018 SUBJECTIVE: The patient is starting to feel better. OBJECTIVE: VITAL SIGNS: Blood pressure 120/62, heart rate of 78 beats per minute, temperature 98 degrees Fahrenheit, breathing 17 times per minute. IMPRESSION: 1. The patient with acute over chronic combined systolic/diastolic type congestive heart failure, treated with diuresis. Cardiology following and have scheduled her for a cardiac stress on Thursday. 2. Slight elevation of troponin I levels. The patient is scheduled for a cardiac stress test on Thursday. 3. Esophageal dilatation with recurrent nausea and vomiting. Dr. Dawson has been consulted for EGD. The patient has a moderate hiatal hernia. 4. The patient with acute exacerbation of chronic obstructive pulmonary disease and shortness of breath, being treated. The patient is on oxygen. 5. Hypokalemia from diuresis. The patient is getting extra potassium supplements, potassium level was 3.3 today. 6. Benign essential hypertension. Blood pressures improved with use of clonidine. 7. Gastroesophageal reflux disease and esophagitis, being treated with omeprazole. The patient requires esophagogastroduodenoscopy for further evaluation. MUSTAPHA MARIANO MD CM:PNTRANS 1649 MUSTAPHA MARIANO MD 09/26/18 0233 interface
--- NOTE | ~2018-09-24 | PR ---
[place], [place] PROGRESS NOTE NAME: SHERIN WILLARD UNIT #: [id number] ROOM: 408 DOCTOR: JH OSPINA,MARIJA BIRTHDATE: [birth year] DOS: 09/26/2018 CARDIOLOGY PROGRESS NOTE REASON FOR VISIT: CHF and elevated cardiac enzymes. SUBJECTIVE: The patient denies any chest pain. Her breathing is better. No PND, no orthopnea. No nausea, vomiting, diarrhea. No palpitation or dizziness. No fever and chills, no cough. REVIEW OF SYSTEMS: Review of 10 systems negative except as mentioned above. PHYSICAL EXAMINATION: VITAL SIGNS: Blood pressure 133/55, respiratory rate was 18, pulse 64, weight 59.6 kg. RHYTHM STRIPS: The patient in sinus rhythm. GENERAL: Alert, comfort, no acute distress. HEENT: Pupils are round and equal, no jaundice. NECK: Supple, no distended neck veins, no carotid bruit. CHEST: Symmetrical, nontender. LUNGS: Few scattered rhonchi. Good air entry bilaterally. HEART: Regular, no S3, no palpable thrills. Grade 1/6 systolic murmur. ABDOMEN: Bowel sounds normal. EXTREMITIES: Showed trace to 1+ edema. SKIN: Warm and dry. No cyanosis, no clubbing. Distal pulses are palpable. NEUROLOGIC: The patient is alert. No focal neurologic deficit. RECTAL: Deferred. GENITOURINARY: Deferred. MEDICATIONS AND LABORATORIES: Reviewed. IMPRESSION: 1. Acute on chronic diastolic heart failure. 2. Borderline elevation of troponin, likely due to her CHF and possible type 2 non-ST elevation myocardial infarction. 3. Coronary artery disease, status post previous bypass surgery. 4. Hypertension. RECOMMENDATIONS: 1. Continue current medication. The patient is chest pain free. 2. A 2D echo for tomorrow to check LV and valve function. 3. Lexiscan stress tomorrow to rule out any significant ischemia. 4. There is no family at bedside, the patient had one of her friends at bedside. 5. Case was discussed with Dr. Singh regarding 2D echo and Lexiscan stress test tomorrow. 6. If echo and Lexiscan stress test shows unremarkable, possible discharge tomorrow. [place], [place] PROGRESS NOTE NAME: SHERIN WILLARD UNIT #: [id number] ROOM: [facility] DOCTOR: MARIJA PEÑALOZA MD BIRTHDATE: [birth year] MARIJA PEÑALOZA MD CM:LANDON [phone] MARIJA PEÑALOZA MD 09/27/18 0118 interface
--- NOTE | ~2018-09-24 | DS ---
[place], [place] DISCHARGE SUMMARY NAME: SHERIN WILLARD UNIT #: [id number] ROOM: 408 DOCTOR: MUSTAPHA MARIANO MD BIRTHDATE: [birth year] DOS: 09/30/2018 DISCHARGE DIAGNOSES: 1. Chest pains with normal cardiac stress test. 2. Very large hiatal hernia with recurrent regurgitation, nausea and vomiting. The patient is not a good surgical candidate for repair. 3. Advance adult failure to thrive and disability. 4. Benign essential hypertension. 5. 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 6. Mixed hyperlipidemia. 7. Gastroesophageal reflux disease and esophagitis. 8. Pulmonary nodule. 9. Chronic obstructive pulmonary disease. 10. Coronary artery disease of the shoalwater vessels and coronary artery bypass grafts. HOSPITAL COURSE: The patient presented to the Emergency Department with increased shortness of breath and leg edema with some nausea and vomiting for a few days. The patient was found to be in acute congestive heart failure, combined systolic/diastolic type. She was diuresed with intravenous Bumex and repeat chest x-ray showed resolution of the congestive heart failure and the patient's breathing improved, also leg edema improved. Advance adult failure to thrive. The patient going for rehabilitation. Recurrent chest pains evaluated with cardiac stress test by Cardiology, was normal. Ambulatory dysfunction. The patient working with Physical Therapy and going to rehabilitation. Coronary artery disease of the shoalwater vessels without chest pains. Acute exacerbation of chronic obstructive pulmonary disease, improved with treatment. Normal serum electrolytes. Hypokalemia related to diuresis. The patient is getting extra potassium supplements. Urinary tract infection with Acinetobacter lwoffi, treated with antibiotics. Echocardiogram showing mild concentric LVH with 60% left ventricular ejection fraction. DISCHARGE MANAGEMENT: Omeprazole 20 mg a day, metoclopramide 5 mg a.c. and at bedtime, furosemide 20 mg daily, metoprolol 12.5 mg b.i.d., clonidine 0.1 mg b.i.d., potassium chloride 20 mEq daily, aspirin 81 mg a day, omeprazole 20 mg a day. [place], [place] DISCHARGE SUMMARY NAME: SHERIN WILLARD UNIT #: [id number] ROOM: 408 DOCTOR: MUSTAPHA MARIANO MD BIRTHDATE: [birth year] MUSTAPHA MARIANO MD CM:TINA [phone] MUSTAPHA MARIANO MD 09/30/18 215 interface
--- NOTE | ~2018-09-24 | CON ---
[place], [place] REPORT OF CONSULTATION NAME: [facility]ERIN WILLARD [facility] [id number] UNIT #: [id number] ROOM: 408 DOCTOR: JH OSPINA,MARIJA BIRTHDATE: [birth year] DOS: 09/25/2018 REASON FOR CONSULTATION: CHF and elevated troponins. HISTORY OF PRESENT ILLNESS: The patient is an 83-year-old patient who has history of coronary artery disease, previous bypass surgery, was presented to Emergency Room for progressive shortness of breath and edema for a few days. She denies any chest pain or palpitation, no PND or orthopnea. No nausea, vomiting, diarrhea. No cough or hemoptysis. DICTATION ENDS HERE. MARIJA PEÑALOZA MD CM:CONSTR:REPORT OF CONSULTATION 1608 09/26/18 0101 interface
--- NOTE | ~2018-09-24 | PR ---
[place], [place] PROGRESS NOTE NAME: SHERIN WILLARD [facility] #: [id number] UNIT #: [id number] ROOM: 408 DOCTOR: VIC GONZALES DPM BIRTHDATE: [birth year] DOS: 09/25/2018 SUBJECTIVE: The patient presents for followup of onychomycosis and edema in both lower extremities. OBJECTIVE FINDINGS: Pedal pulses nonpalpable. Skin is thin and atrophic. No signs of hair growth. No signs of ulceration. There is +1 pitting edema with lymphedema bilateral. Onychomycosis 1 through 5 bilateral post nail debridement, stable at this time. ASSESSMENT: Edema, lymphedema bilateral, onychomycosis. PLAN: Evaluation and management. Continue with compression hose and reappoint for followup. The nails were debrided yesterday. VIC GONZALES DPM CM:PNALISSA [id number] VIC GONZALES DPM 09/25/18 1101 interface
--- NOTE | ~2018-09-24 | PR ---
[place], [place] PROGRESS NOTE NAME: SHERIN WILLARD UNIT #: [id number] ROOM: 408 DOCTOR: MUSTAPHA MARIANO MD BIRTHDATE: [birth year] DOS: 09/28/2018 OBJECTIVE: VITAL SIGNS: Blood pressure 110/60, heart rate of 56 beats per minute, breathing 18-20 times per minute, temperature 98 degrees Fahrenheit. GENERAL APPEARANCE: The patient is alert and oriented x 3, in no visible distress. HEENT AND NECK: Exam within normal limits. CARDIOVASCULAR SYSTEM: Heart rate is regular in rate and rhythm. S1 and S2 normally audible. LUNGS: Clear to auscultation. ABDOMEN: Soft, nontender. No obvious organomegaly. Bowel sounds are present. EXTREMITIES: Without significant cyanosis or edema. Generalized weakness. ASSESSMENT AND PLAN: 1. The patient with advanced disability, has enough help at home that she can be discharged to home. Discussed with social media specialist and the patient today, she has caretakers at home. 2. The patient with difficulty with swallowing, regurgitation, vomiting and previous history of esophageal stricture. Going for EGD for further evaluation tomorrow by Dr. Dawson. 3. Gastroesophageal reflux disease and esophagitis, treated with omeprazole. 4. Benign essential hypertension. Blood pressure being monitored and treated. 5. Acute over combined chronic systolic and diastolic type congestive heart failure, compensated, treated with diuresis. MUSTAPHA MARIANO MD CM:PNTRANS [phone] MUSTAPHA MARIANO MD 09/28/18 1528 interface
--- NOTE | ~2018-09-24 | EKG ---
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
--- NOTE | ~2018-09-24 | CON ---
[place], [place] REPORT OF CONSULTATION [id number] UNIT #: [id number] ROOM: 408 DOCTOR: DWAYNE MORSE MD BIRTHDATE: [birth year] DOS: 09/27/2018 GASTROENDOSCOPIC CONSULTATION REPORT HISTORY OF PRESENT ILLNESS: An 83-year-old patient who has presented with chief complaint of atypical chest pain, history of emesis, and blood in his emesis. EMS brought her to the Emergency Room and has been assessed. Her blood count was not acutely compromised and she was given antiemetic and PPI and supportive management. Her INR was 1.1. CBC with white blood cell 14, H and H of 16 and 46, neutrophil of 91. Chemistry was within normal limit, borderline hyponatremia of 131 and potassium of 3.4 was noticed. Her troponin was slightly elevated. GOT and GPT within normal limits. Alkaline phosphatase was mildly elevated. Lactic acid elevated. BNP of 6600+. Chest x-ray was with no acute process. CT scan of the abdomen and pelvis was done. There appears to be moderate hiatal hernia, distention of the distal esophagus, cholelithiasis, diverticulosis without diverticulitis. Gallbladder sonogram noticed cholelithiasis, no wall thickening, no pericholecystic fluid, all noticed. PAST MEDICAL HISTORY: Hypertension, congestive heart failure, atelectasis, electrolyte imbalance, restrictive lung disease. PAST SURGICAL HISTORY: Coronary artery disease, triple vessel bypass. SOCIAL HISTORY: Nonsmoker, nonalcohol consumer. FAMILY HISTORY: Noncontributory. ALLERGIES: No known medications. MEDICATION LIST: Reviewed. REVIEW OF SYSTEMS: HEENT: Denies double vision or blurred vision. RESPIRATORY: Denies acute shortness of breath. CARDIOVASCULAR: Denies acute chest pain atypically. DIGESTIVE SYSTEM: Epigastric distress, nausea, and hematemesis. PHYSICAL EXAMINATION: VITAL SIGNS: Stable. HEENT: Within normal limit. NECK: Supple. No thyromegaly. No cervical lymphadenopathy. CHEST: Symmetric anatomy, COPD. HEART: Normal sinus rhythm. No gallop, no murmur. ABDOMEN: Soft. No hepato-organomegaly. Bowel sounds present. EXTREMITIES: No cyanosis. No pedal edema. NEUROLOGIC: Alert and oriented to time, place, and person. DIAGNOSTIC DATA: Labs reviewed, records reviewed. PLAN AND DISCUSSION: Large hiatal hernia, possible distal esophageal reflux [place], [place] REPORT OF CONSULTATION NAME: SHERIN WILLARD UNIT #: [id number] ROOM: 408 DOCTOR: DWAYNE MORSE MD BIRTHDATE: [birth year] ulceration, and atypical chest pain, all are parts of differential diagnoses of hematemesis. For esophageal possible ulceration, we are going to organize an EGD now that her cardiac issues have been cleared. DWAYNE MORSE MD CM:CONSTR:REPORT OF CONSULTATION 33 09/28/18 0407 interface
--- NOTE | ~2018-09-24 | CON ---
[place], [place] REPORT OF CONSULTATION NAME: SHERIN WILLARD UNIT #: [id number] ROOM: 408 DOCTOR: MARIJA PEÑALOZA MD BIRTHDATE: [birth year] DOS: 09/25/2018 REASON FOR CONSULTATION: CHF and elevated troponin. HISTORY OF PRESENT ILLNESS: The patient is an 83-year-old patient with history of coronary artery disease, previous bypass, was presented to Emergency Room for progressive shortness of breath and some edema for the past few days. She also has some nausea and vomiting. She denies any chest pains. She was found to be in congestive heart failure, was admitted to the hospital and Cardiology consulted for further recommendations. She also had ultrasound of the gallbladder. She had nausea, vomiting and her gallbladder was unremarkable. At the time of examination, the patient is comfortable. Denies any chest pain or shortness of breath. The patient is feeling better. No PND or orthopnea. No nausea, vomiting. No bladder or bowel symptoms. No palpitation or dizziness. REVIEW OF SYSTEMS: Review of 10 systems negative except as mentioned above. PAST MEDICAL HISTORY: 1. Coronary artery disease, status post bypass. 2. Hypertension. 3. Dyslipidemia. 4. Acid reflux. 5. Pulmonary nodules. 6. Chronic obstructive pulmonary disease. 7. Ambulatory dysfunction. PAST SURGICAL HISTORY: History of bypass 2-3 years ago, details unknown. FAMILY HISTORY: Noncontributory. HOME MEDICATIONS: Reviewed. ALLERGIES: Reviewed. SOCIAL HISTORY: The patient does not smoke or drink, does not use illicit drugs. PHYSICAL EXAMINATION: VITAL SIGNS: Blood pressure 130/86, pulse 87, respiration 16, weight 64.9 kg, BMI 23.1. GENERAL: Alert, comfortable, in no acute distress. HEAD AND NECK: Pupils are round and equal, no jaundice. NECK: Supple, no distended neck veins, no carotid bruit. CHEST: Symmetrical, nontender. LUNGS: A few scattered rhonchi. Slightly diminished at bases. HEART: Regular rhythm, no S3. Grade 1/6 systolic murmur. No palpable thrills. ABDOMEN: Benign, nontender. Bowel sounds normal. EXTREMITIES: Showed no edema. Distal pulses palpable. SKIN: Warm and dry. No cyanosis, no clubbing. RECTAL: Deferred. [place], [place] REPORT OF CONSULTATION NAME: SHERIN WILLARD UNIT #: [id number] ROOM: 408 DOCTOR: JH OSPINA,MARIJA BIRTHDATE: [birth year] GENITALIA: Deferred. NEUROLOGIC: Alert, oriented. No focal neurologic deficit. REVIEW OF THE DIAGNOSTIC TESTS: EKG, imaging studies and labs reviewed. The pertinent labs including cardiac troponins of 0.057, 0.063, 0.078, potassium 3.3, creatinine 0.85. White cell count 11949, hemoglobin 15.2 and echo from 07/2016 reviewed. IMPRESSION: 1. Acute on chronic heart failure, positive diastolic heart failure. 2. Borderline elevation of troponin. It appears to be type 2 non-ST elevation myocardial infarction from her congestive heart failure. The patient denies any chest pain. 3. Coronary artery disease, status post bypass surgery 3-4 years ago. 4. Hypertension. 5. Dyslipidemia, but her Lipitor from 2018 showed normal lipid profile: Total cholesterol 105, LDL 40, HDL 49. RECOMMENDATIONS: 1. Continue current medications. 2. Start beta karla 20 mg twice daily for coronary artery disease and Lasix 20 mg once daily. 3. Supplement her potassium. 4. Check 2D echo for LV function and valvular function on Thursday. 5. Lexiscan stress test on Thursday. 6. No family at bedside at the time of my examination. 7. Above recommendation discussed with the patient. MARIJA PEÑALOZA MD CM:CONSTR:REPORT OF CONSULTATION 1617 09/26/18 1620 interface
[2018-09-24 10:52] VITALS: BP 153/84
[~2018-09-24 10:52] MED LIST changes: +MACROBID100 M1 PO
[2018-09-24 11:29] LABS: HEMATOCRIT 46.9 % (37.0-47.0); HEMOGLOBIN 16.3 g/dl (12.0-16.0); MEAN CELL VOLUME 88.8 fl (81.0-99.0); MEAN CORPUSCULAR HGB 30.9 pg (27.0-31.0); MEAN CORPUSCULAR HGB CONC 34.8 g/dl (33.0-37.0); PLATELET COUNT AUTOMATED 271 10*3/uL (130-400); RED BLOOD COUNT 5.28 10*6/uL (4.10-5.10); RED CELL DISTRI WIDTH 13.7 % (0-14.5); WHITE BLOOD COUNT 14.5 10*3/uL (4.8-10.8)
[2018-09-24 11:35] LABS: ACT PARTIAL THROMBO TIME 28.5 SECONDS (20.0-32.1)
[2018-09-24 11:41] LABS: PLATELET SUFFICIENCY NORMAL (NORMAL); TOTAL CELLS COUNTED 100 #CELLS
[2018-09-24 11:42] LABS: ALBUMIN 4.1 gm/dl (3.1-4.5); ALKALINE PHOSPHATASE 143 U/L (45-117); BUN 13 mg/dl (7-24); CHLORIDE 95 mmol/L (98-107); CREATININE 0.76 mg/dL (0.55-1.02); POTASSIUM 3.4 mmol/L (3.5-5.1); SGOT/AST 23 IU/L (3-35); SGPT/ALT 13 U/L (12-78); SODIUM 131 mmol/L (136-145); TOTAL PROTEIN 9.3 gm/dL (6.4-8.2)
[2018-09-24 11:50] LABS: TROPONIN I 0.057 ng/ml (<0.045)
[2018-09-24 12:01] LABS: BILIRUBIN NEGATIVE (NEGATIVE); BLOOD TRACE-INTACT (NEGATIVE); CLARITY CLOUDY (CLEAR); COLOR YELLOW (YELLOW); GLUCOSE NEGATIVE (NEGATIVE); KETONE 1+ (NEGATIVE); LEUKO ESTERASE NEGATIVE (NEGATIVE); NITRITE NEGATIVE (NEGATIVE)
[2018-09-24 12:10] VITALS: BP 150/84
[2018-09-24 12:15] LABS: BACTERIA 4+; EPITHELIAL CELLS 0-2
[2018-09-24 12:38] VITALS: BP 176/67
[2018-09-24 13:20] VITALS: BP 140/82
[2018-09-24] MEDS ORDERED: ZOCOR40 MG PO (14:07)
[2018-09-24] MEDS ORDERED: VITAMIN D-32000 UNI1 PO (14:10)
[2018-09-24 16:00] VITALS: BP 153/81
[2018-09-24 20:00] VITALS: BP 160/78
[2018-09-25 05:23] VITALS: BP 152/80
[2018-09-25 06:57] LABS: HEMATOCRIT 44.3 % (37.0-47.0); HEMOGLOBIN 15.2 g/dl (12.0-16.0); MEAN CELL VOLUME 89.3 fl (81.0-99.0); MEAN CORPUSCULAR HGB 30.6 pg (27.0-31.0); MEAN CORPUSCULAR HGB CONC 34.3 g/dl (33.0-37.0); MEAN PLATELET VOLUME 10.6 fl (9.6-12.3); PLATELET COUNT AUTOMATED 336 10*3/uL (130-400); RED BLOOD COUNT 4.96 10*6/uL (4.10-5.10); RED CELL DISTRI WIDTH 13.9 % (0-14.5); WHITE BLOOD COUNT 17.7 10*3/uL (4.8-10.8)
[2018-09-25 07:04] LABS: BUN 20 mg/dl (7-24); CHLORIDE 93 mmol/L (98-107); CREATININE 0.85 mg/dL (0.55-1.02); POTASSIUM 3.3 mmol/L (3.5-5.1); SODIUM 135 mmol/L (136-145)
[2018-09-25 08:02] LABS: PLATELET SUFFICIENCY NORMAL (NORMAL); TOTAL CELLS COUNTED 100 #CELLS
[2018-09-25 08:42] VITALS: BP 168/92
[2018-09-25 11:27] VITALS: BP 150/86
[2018-09-25 15:43] VITALS: BP 120/62
[2018-09-25 20:00] VITALS: BP 138/60
[2018-09-26] VITALS: BP 140/62
[2018-09-26 07:04] LABS: BASO % 0.2 % (0.0-1.0); EOS # 0.1 10*3/uL (0.0-0.4); EOS % 0.6 % (1.0-4.0); HEMATOCRIT 39.1 % (37.0-47.0); HEMOGLOBIN 13.3 g/dl (12.0-16.0); LYMPH # 2.1 10*3/uL (1.3-4.4); LYMPH % 16.9 % (27.0-41.0); MEAN CELL VOLUME 90.9 fl (81.0-99.0); MEAN CORPUSCULAR HGB 30.9 pg (27.0-31.0); MEAN PLATELET VOLUME 10.5 fl (9.6-12.3); MONO # 1.4 10*3/uL (0.1-1.0); MONO % 11.5 % (3.0-9.0); NEUT # 8.6 10*3/uL (2.3-7.9); NEUT % 70.5 % (47.0-73.0); PLATELET COUNT AUTOMATED 256 10*3/uL (130-400); RED CELL DISTRI WIDTH 13.7 % (0-14.5); WHITE BLOOD COUNT 12.2 10*3/uL (4.8-10.8)
[2018-09-26 07:10] LABS: CHLORIDE 97 mmol/L (98-107); SODIUM 134 mmol/L (136-145)
[2018-09-26 07:17] LABS: BUN 38 mg/dl (7-24); POTASSIUM 4.3 mmol/L (3.5-5.1)
[2018-09-26 08:00] VITALS: BP 133/55
[2018-09-26 12:00] VITALS: BP 132/62
[2018-09-26 16:00] VITALS: BP 121/64
[2018-09-26 20:00] VITALS: BP 127/70
[2018-09-27] VITALS (7 sets, daily range): BP systolic 109–143; BP diastolic 57–96
[2018-09-27 06:55] LABS: BASO % 0.3 % (0.0-1.0); EOS # 0.2 10*3/uL (0.0-0.4); EOS % 1.3 % (1.0-4.0); HEMATOCRIT 37.3 % (37.0-47.0); HEMOGLOBIN 12.4 g/dl (12.0-16.0); LYMPH # 2.3 10*3/uL (1.3-4.4); LYMPH % 19.5 % (27.0-41.0); MEAN CELL VOLUME 91.6 fl (81.0-99.0); MEAN CORPUSCULAR HGB 30.5 pg (27.0-31.0); MEAN CORPUSCULAR HGB CONC 33.2 g/dl (33.0-37.0); MEAN PLATELET VOLUME 10.8 fl (9.6-12.3); MONO # 1.3 10*3/uL (0.1-1.0); MONO % 10.6 % (3.0-9.0); NEUT # 8.1 10*3/uL (2.3-7.9); PLATELET COUNT AUTOMATED 237 10*3/uL (130-400); RED BLOOD COUNT 4.07 10*6/uL (4.10-5.10); RED CELL DISTRI WIDTH 13.5 % (0-14.5); WHITE BLOOD COUNT 11.9 10*3/uL (4.8-10.8)
[2018-09-27 07:23] LABS: CHLORIDE 96 mmol/L (98-107); POTASSIUM 3.9 mmol/L (3.5-5.1); SODIUM 133 mmol/L (136-145)
[2018-09-27 07:31] LABS: BUN 43 mg/dl (7-24); CREATININE 0.89 mg/dL (0.55-1.02)
[2018-09-28] VITALS: BP 121/49
[2018-09-28 08:00] VITALS: BP 110/60
[2018-09-28 12:00] VITALS: BP 114/52
[2018-09-28 16:00] VITALS: BP 103/52
[2018-09-28 20:00] VITALS: BP 110/62
[2018-09-28 20:46] VITALS: BP 108/60
[2018-09-29] VITALS (7 sets, daily range): BP systolic 100–140; BP diastolic 47–68
[2018-09-30] VITALS: BP 122/54
[2018-09-30 08:00] VITALS: BP 124/68
[2018-09-30 09:27] VITALS: BP 100/52
[2018-09-30] MEDS ORDERED: 'CLONIDINE0.1 MG PO (11:12)
[2018-09-30] MEDS ORDERED: LOPRESSOR25 MG PO (11:12)
[2018-09-30] MEDS ORDERED: FUROSEMIDE20 M1 PO (11:12)
[2018-09-30 12:00] VITALS: BP 129/58
== END 2018-09-30 16:42 | disposition other institution (70) | DRG 391 ==
LOC: ED 10:52 → 4E 12:45 → EDHOLD 12:45 → 4E 13:00
PROVIDERS: Emergency Medicine; ADMIT Internal Medicine
DX: K44.9 Diaphragmatic hernia without obstruction or gangrene (principal); I50.43 Acute on chronic combined systolic (congestive) and diastolic (congestive) heart failure; N39.0 Urinary tract infection, site not specified; E87.1 Hypo-osmolality and hyponatremia; J96.10 Chronic respiratory failure, unspecified whether with hypoxia or hypercapnia; J44.1 Chronic obstructive pulmonary disease with (acute) exacerbation; I11.0 Hypertensive heart disease with heart failure; R07.89 Other chest pain; E87.6 Hypokalemia; K22.8 Other specified diseases of esophagus; B35.1 Tinea unguium; K29.70 Gastritis, unspecified, without bleeding; I89.0 Lymphedema, not elsewhere classified; I34.0 Nonrheumatic mitral (valve) insufficiency; I73.9 Peripheral vascular disease, unspecified; K80.20 Calculus of gallbladder without cholecystitis without obstruction; R62.7 Adult failure to thrive; E78.2 Mixed hyperlipidemia; K21.0 Gastro-esophageal reflux disease with esophagitis; B96.89 Other specified bacterial agents as the cause of diseases classified elsewhere; R91.1 Solitary pulmonary nodule; I25.10 Atherosclerotic heart disease of native coronary artery without angina pectoris; T50.2X5A Adverse effect of carbonic-anhydrase inhibitors, benzothiadiazides and other diuretics, initial encounter; Y92.89 Other specified places as the place of occurrence of the external cause; Z95.1 Presence of aortocoronary bypass graft; Z87.01 Personal history of pneumonia (recurrent); Z87.440 Personal history of urinary (tract) infections; Z90.710 Acquired absence of both cervix and uterus; Z98.42 Cataract extraction status, left eye; Z82.49 Family history of ischemic heart disease and other diseases of the circulatory system; Z79.899 Other long term (current) drug therapy; Z79.82 Long term (current) use of aspirin; Z68.23 Body mass index [BMI] 23.0-23.9, adult

== ENCOUNTER 2018-10-02 12:55 | Emergency (ER) | payer OTHER ==
[~2018-10-02] VITALS: Ht 162.5 cm; Wt 63.5 kg
--- NOTE | ~2018-10-02 | EKG ---
[place], [place] ELECTROCARDIOGRAM REPORT NAME: SHERIN WILLARD UNIT #: [id number] ROOM: DOCTOR: EPIPHANY DRAFT REPORT BIRTHDATE: [birth year] [facility] Test Date: 2018-10-02 Test Time: 16:03:39 Pat Name: SHERIN WILLARD Department: Room: Gender: F Office Services Clerk: TAWANDA : 1935 Requested By: DHARMESH SOMMER Order Number: [id number] Reading MD: Mark Kern MD Measurements Intervals [place] Rate: 70 P: 54 DC: 176 QRS: -18 QRSD: 117 T: 112 QT: 404 QTc: 436 Interpretive Statements Sinus rhythm Probable left atrial enlargement Nonspecific intraventricular conduction delay Repol abnrm suggests ischemia, anterolateral Minimal ST elevation, inferior leads Compared to ECG 09/24/2018 16:54:44 Intraventricular conduction delay now present Possible ischemia now present Ventricular premature complex(es) no longer present Left ventricular hypertrophy no longer present Q waves no longer present ST (T wave) deviation still present Electronically Signed On 10-04-2018 8:13:19 PDT by Mark Kern MD CM:EKGRPT:ELECTROCARDIOGRAM REPORT 1603 0813 DHARMESH ARIAS DRAFT REPORT DHARMESH SOMMER M.D.
--- NOTE | ~2018-10-02 | EKG ---
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1935 Requested By: DHARMESH SOMMER Order Number: [id number] Reading MD: Mark Kern MD Measurements Intervals [place] Rate: 72 P: 62 MT: 168 QRS: -17 QRSD: 123 T: 109 QT: 409 QTc: 448 Interpretive Statements Sinus rhythm Ventricular premature complex Probable left atrial enlargement LVH with secondary repolarization abnormality Anterior infarct, old Minimal ST elevation, inferior leads Compared to ECG 09/24/2018 16:54:44 Myocardial infarct finding now present Q waves no longer present ST (T wave) deviation still present Electronically Signed On 10-04-2018 8:12:49 PDT by Mark Kern MD CM:EKGRPT:ELECTROCARDIOGRAM REPORT 1259 0812 DHARMESH ARIAS DRAFT REPORT DHARMSEH SOMMER M.D.
[~2018-10-02 12:55] MED LIST changes: +'CLONIDINE0.1 MG PO; +FUROSEMIDE20 M1 PO; +LOPRESSOR25 MG PO; +VITAMIN D-32000 UNI1 PO; +ZOCOR40 MG PO
[2018-10-02 13:16] LABS: BASO # 0.1 10*3/uL (0.0-0.1); BASO % 0.4 % (0.0-1.0); EOS % 0.3 % (1.0-4.0); HEMATOCRIT 41.2 % (37.0-47.0); HEMOGLOBIN 14.2 g/dl (12.0-16.0); LYMPH # 1.2 10*3/uL (1.3-4.4); LYMPH % 9.1 % (27.0-41.0); MEAN CELL VOLUME 90.5 fl (81.0-99.0); MEAN CORPUSCULAR HGB 31.2 pg (27.0-31.0); MEAN CORPUSCULAR HGB CONC 34.5 g/dl (33.0-37.0); MEAN PLATELET VOLUME 10.3 fl (9.6-12.3); MONO # 1.2 10*3/uL (0.1-1.0); MONO % 9.8 % (3.0-9.0); NEUT # 10.2 10*3/uL (2.3-7.9); PLATELET COUNT AUTOMATED 289 10*3/uL (130-400); RED BLOOD COUNT 4.55 10*6/uL (4.10-5.10); RED CELL DISTRI WIDTH 13.5 % (0-14.5); WHITE BLOOD COUNT 12.7 10*3/uL (4.8-10.8)
[2018-10-02 13:29] LABS: ACT PARTIAL THROMBO TIME 27.3 SECONDS (20.0-32.1)
[2018-10-02 13:34] LABS: ALBUMIN 3.2 gm/dl (3.1-4.5); ALKALINE PHOSPHATASE 123 U/L (45-117); BUN 13 mg/dl (7-24); CHLORIDE 99 mmol/L (98-107); CREATININE 0.66 mg/dL (0.55-1.02); POTASSIUM 3.8 mmol/L (3.5-5.1); SGOT/AST 17 IU/L (3-35); SGPT/ALT 15 U/L (12-78); SODIUM 136 mmol/L (136-145); TOTAL PROTEIN 7.5 gm/dL (6.4-8.2); TROPONIN I 0.033 ng/ml (<0.045)
[2018-10-02 16:47] LABS: BILIRUBIN NEGATIVE (NEGATIVE); BLOOD NEGATIVE (NEGATIVE); CLARITY SL CLOUDY (CLEAR); COLOR YELLOW (YELLOW); GLUCOSE NEGATIVE (NEGATIVE); KETONE NEGATIVE (NEGATIVE); LEUKO ESTERASE NEGATIVE (NEGATIVE); NITRITE NEGATIVE (NEGATIVE); PH 6.5 (5.0-9.0)
[2018-10-02 17:30] VITALS: BP 144/72
== END 2018-10-02 18:45 ==
LOC: ED 12:55
PROVIDERS: Emergency Medicine; Internal Medicine
DX: R53.1 Weakness (principal); R79.1 Abnormal coagulation profile; I50.9 Heart failure, unspecified; I11.0 Hypertensive heart disease with heart failure; I25.10 Atherosclerotic heart disease of native coronary artery without angina pectoris; Z79.899 Other long term (current) drug therapy; Z79.82 Long term (current) use of aspirin

== ENCOUNTER 2019-10-27 14:50 | Inpatient (IN) | payer OTHER ==
[~2019-10-27] VITALS: Ht 165.1 cm; Wt 56.0 kg
[2019-10-27 15:08] VITALS: BP 141/76
[2019-10-27 16:36] LABS: BASO % 0.1 % (0.0-1.0); HEMATOCRIT 39.8 % (37.0-47.0); LYMPH # 0.9 10*3/uL (1.3-4.4); LYMPH % 6.1 % (27.0-41.0); MEAN CELL VOLUME 94.1 fl (81.0-99.0); MEAN CORPUSCULAR HGB 30.5 pg (27.0-31.0); MEAN CORPUSCULAR HGB CONC 32.4 g/dl (33.0-37.0); MEAN PLATELET VOLUME 10.6 fl (9.6-12.3); MONO # 1.4 10*3/uL (0.1-1.0); NEUT # 12.6 10*3/uL (2.3-7.9); NEUT % 84.4 % (47.0-73.0); PLATELET COUNT AUTOMATED 177 10*3/uL (130-400); RED BLOOD COUNT 4.23 10*6/uL (4.10-5.10); RED CELL DISTRI WIDTH 13.3 % (0-14.5); WHITE BLOOD COUNT 14.9 10*3/uL (4.8-10.8)
[2019-10-27 16:47] LABS: ACT PARTIAL THROMBO TIME 27.9 SECONDS (20.0-32.1); INTERNATIONAL NORM RATIO 1.1 (2.0-3.5)
[2019-10-27 16:53] LABS: ALBUMIN 3.2 gm/dl (3.1-4.5); ALKALINE PHOSPHATASE 271 U/L (45-117); BUN 21 mg/dl (7-24); CHLORIDE 106 mmol/L (98-107); CREATININE 0.76 mg/dL (0.55-1.02); LIPASE 73 U/L (73-393); POTASSIUM 3.7 mmol/L (3.5-5.1); SGPT/ALT 844 U/L (12-78); SODIUM 137 mmol/L (136-145); TOTAL PROTEIN 7.2 gm/dL (6.4-8.2); TROPONIN I 0.039 ng/ml (<0.045)
[2019-10-27 17:08] LABS: BILIRUBIN NEGATIVE (NEGATIVE); BLOOD 1+ (NEGATIVE); CLARITY SL CLOUDY (CLEAR); COLOR YELLOW (YELLOW); GLUCOSE NEGATIVE (NEGATIVE); KETONE NEGATIVE (NEGATIVE); LEUKO ESTERASE 2+ (NEGATIVE); NITRITE POSITIVE (NEGATIVE); SPECIFIC GRAVITY 1.025 (1.005-1.030)
[2019-10-27 17:19] LABS: BACTERIA 4+; WBC 16-20 wbc/hpf (0-5)
[2019-10-27 18:13] LABS: SGOT/AST 1535 IU/L (3-35)
[2019-10-27 18:18] VITALS: BP 160/70
--- NOTE | 2019-10-27 18:18 | NUR ---
PT IS RESTING IN ROOM WITHOUT ANY ACUTE DISTRESS AT THIS TIME.
[2019-10-28] VITALS (7 sets, daily range): BP systolic 114–182; BP diastolic 48–90
--- NOTE | 2019-10-28 00:10 | NUR ---
Time: 9 A 84 year old FEMALE admitted to 5E under services of DR. GARCÍA OSPINA,MUSTAPHA Jacobson Pt. arrived via wheel chair from ER. Chief complaint: FEVER. COLLETTE DOMINGUEZ
[2019-10-28] MEDS ORDERED: ATENOLOL25 MG PO (00:39)
[2019-10-28] MEDS ORDERED: COLACE100 MG PO (00:39)
--- NOTE | 2019-10-28 00:52 | NUR ---
DR. MARIANO NOTIFIED OF PT'S ADMISSION TO FLOOR. Rosalie AVILA.
--- NOTE | 2019-10-28 06:00 | NUR ---
[facility] CALLED IN A CRITICAL OF POSITIVE BLOOD CULTURES FROM THE . PRELIMINARY. POSITIVE GRAM NEGATIVE BACILLI. NOTIFIED PATIENT'S NURSE, EDD.
--- NOTE | 2019-10-28 06:15 | NUR ---
PT RESTING QUEITLY IN BED. AWAKEN FOR AM LABS. NO C/O VOICED.
--- NOTE | 2019-10-28 07:00 | NUR ---
ARRIVED ON SHIFT, REPORT RECEIVED FROM OFF GOING NURSE, ASSUMED CARE OF PATIENT.
--- NOTE | 2019-10-28 07:20 | NUR ---
INTRODUCED SELF TO PATIENT, BED IN LOW POSITION, WHEEL LOCKS ENGAGED SIDE RAILS UP X 2 FOR TURNING AND REPOSITIONING, CALL LIGHT WITHIN REACH, NO NEEDS VOICED AT THIS TIME, WHITE BOARD UPDATED.
--- NOTE | 2019-10-28 07:41 | NUR ---
PHYSICAL THERAPY Nursing screen received and chart reviewed. Recommend skilled PT services if functional decline presents. Thank you. Heidy Garcia,PT,DPT
--- NOTE | 2019-10-28 08:00 | NUR ---
Nursing screen received and chart reviewed. Patient admitted from home with nausea, vomitting, and fever. If patient has a decline in ADLs, transfers, or functional mobility, please send OT orders. Thank you. Rupinder Barcenas, OTR/L
--- NOTE | 2019-10-28 10:52 | NUR ---
CALL PLACED TO [facility] SPOKE WITH REKHA, ADVISED OF CONSULT.
--- NOTE | 2019-10-28 13:29 | NUR ---
Reception Clerk in to talk to patient. Patient states lives at HOME with SON. There are NO steps in the home. Physician: GARCÍA Pharmacy: [facility] Home health services: NONE Patient's level of ADLs: INDEPENDENT Patient has working utilities: YES DME: ANNI Follow-up physician's appointment after d/c: PREFERS TO MAKE OWN ON DISCHARGE Does patient want to access PORTAL?: NO Discharge plan PT LIVES AT HOME WITH HER SON AND STATES SHE IS INDEPENDENT IN HER CARE. STATES SHE IS NORMALLY ABLE WALK AND CARE FOR HERSELF WHEN WELL. HAS BEEN SICK FOR A COUPLE OF DAYS AND FELT WEAK. TALKED WITH HER ABOUT HOME HEALTH OR SNF STAY. SHE REFUSES BOTH, STATES I JUST WANT TO GO HOME. WILL CONTINUE TO FOLLOW. STATES HER GRAND SON WILL TAKE HER HOME . МАРИЯ MCMANUS
--- NOTE | 2019-10-28 23:57 | NUR ---
DR. PETTY NOTIFIED OF PT'S MANUAL BP OF 182/90. T.O. RCVD FOR CLONODINE 0.1MG PO X1 NOW.
--- NOTE | 2019-10-29 00:30 | NUR ---
PT SAT 90% RA. O2 APPLIED VIA NC AT 2L. PT C/O FEELING COLD. SKIN WARM/FLUSHED. TEMP 100.7. MEDICATED W/CLONODIN FOR HTN. WILL MONITOR.
--- NOTE | 2019-10-29 00:55 | NUR ---
PT MEDICATED W/TYLENOL FOR ELEVATED TEMP AND GENERAL DISCOMFORT.
[2019-10-29 02:00] VITALS: BP 131/53
--- NOTE | 2019-10-29 03:32 | NUR ---
PT RESTING QUIETLY IN BED W/EYES CLOSED. NO S/S OF DISTRESS NOTED. CALL LIGHT IN REACH W/BED ALARM ON.
--- NOTE | 2019-10-29 07:00 | NUR ---
ARRIVED ON SHIFT, REPORT RECEIVED FROM OFFGOING NURSE, ASSUMED CARE OF PATIENT.
--- NOTE | 2019-10-29 07:10 | NUR ---
INTRODUCED SELF AND CREW MESS ATTENDANT TO PATIENT, BED IN LOW POSITION, WHEEL LOCKS ENGAGED, SIDE RAILS UP X 2 FOR TURNING AND REPOSITIONING, BED ALARM ON, CALL LIGHT WITHIN REACH, NO NEEDS VOICED AT THIS TIME, WHITE BOARD UPDATED.
[2019-10-29 08:00] VITALS: BP 145/86
--- NOTE | 2019-10-29 08:11 | NUR ---
Shift chart check completed.
--- NOTE | 2019-10-29 09:51 | NUR ---
PT ADMITTED FOR ELEVATED TRANSAMINASE LEVEL CHOLECYSTITIS PMH: HTN, CAD, GERD, VA, HIGH CHOLESTEROL, NAUSEA TESTS: CAT SCAN SHOWED DISTENDED GALLBLADDER AND A MODERATE SIZE HIATAL HERNIA IV IN LEFT WRIST NEURO: A&O x 4 ACTIVITY: FALL RISK, PT STATED THAT SHE USES A CANE AND A WALKER AT HOME PAIN: PT STATES THAT SHE HAS NO PAIN AT THIS TIME RESPIRATORY: 98 02 @ 2L NASAL CANULA WITH CLEAR BREATH SOUNDS THROUGHOUT CARDIOVASCULAR: SB, NONPITTING 1+ EDEMA BILATERALLY ON LOWER LEGS GASTROINTESTINAL: REGULAR DIET WITH HYPOACTIVE BOWEL SOUNDS, LAST BM WAS 10-27-2019 MUSCULOSKELETAL: GENERALIZED WEAKNESS CEFERINO PETTY STUDENT NURSE/PORTIA BUI
[2019-10-29 12:00] VITALS: BP 141/58
[2019-10-29 16:00] VITALS: BP 165/95
[2019-10-29 16:55] VITALS: BP 150/68
[2019-10-29 20:00] VITALS: BP 160/79
--- NOTE | 2019-10-29 21:28 | NUR ---
PATIENT MEDICATED WITH TYLENOL FOR TEMP OF 100.7. WILL MONITOR FOR EFFECTIVENESS. CALL LIGHT IN REACH.
[2019-10-30] VITALS: BP 150/60
--- NOTE | 2019-10-30 | NUR ---
TYLENOL EFFECTIVE. TEMP 97.3 AT THIS TIME. NO SIGNS OR SYMPTOMS OF DISTRESS NOTED.
[2019-10-30 06:38] LABS: BASO % 0.5 % (0.0-1.0); EOS # 0.1 10*3/uL (0.0-0.4); EOS % 1.8 % (1.0-4.0); HEMATOCRIT 36.6 % (37.0-47.0); LYMPH # 1.2 10*3/uL (1.3-4.4); MEAN CELL VOLUME 92.9 fl (81.0-99.0); MEAN CORPUSCULAR HGB 30.2 pg (27.0-31.0); MEAN CORPUSCULAR HGB CONC 32.5 g/dl (33.0-37.0); MEAN PLATELET VOLUME 10.7 fl (9.6-12.3); MONO # 0.8 10*3/uL (0.1-1.0); NEUT # 4.1 10*3/uL (2.3-7.9); NEUT % 65.4 % (47.0-73.0); PLATELET COUNT AUTOMATED 135 10*3/uL (130-400); RED BLOOD COUNT 3.94 10*6/uL (4.10-5.10); RED CELL DISTRI WIDTH 13.2 % (0-14.5); WHITE BLOOD COUNT 6.3 10*3/uL (4.8-10.8)
--- NOTE | 2019-10-30 06:48 | NUR ---
DR. PETTY NOTIFIED OF CRITICAL LAB RESULT OF BLOOD CULTURE ON 10/26 E. COLI.
--- NOTE | 2019-10-30 07:00 | NUR ---
ARRIVED ON SHIFT, REPORT RECEIVED FROM OFFGOING NURSE, ASSUMED CARE OF PATIENT.
[2019-10-30 07:07] LABS: ALBUMIN 2.7 gm/dl (3.1-4.5); BUN 9 mg/dl (7-24); CHLORIDE 104 mmol/L (98-107); CREATININE 0.61 mg/dL (0.55-1.02); POTASSIUM 3.1 mmol/L (3.5-5.1); SGOT/AST 68 IU/L (3-35); SGPT/ALT 205 U/L (12-78); SODIUM 139 mmol/L (136-145); TOTAL PROTEIN 6.5 gm/dL (6.4-8.2)
[2019-10-30 07:08] LABS: ALKALINE PHOSPHATASE 157 U/L (45-117)
--- NOTE | 2019-10-30 07:30 | NUR ---
INTRODUCED SELF TO PATIENT BED IN LOW POSITION, WHEEL LOCKS ENGAGED, SIDE RAILS UP X 2 FOR TURNING AND REPOSITIONING, BED ALARM POPULATION HEALTH MANAGER LIGHT WITHIN REACH, NO NEEDS VOICED AT THIS TIME.
--- NOTE | 2019-10-30 07:31 | NUR ---
Shift chart check completed.
[2019-10-30 08:00] VITALS: BP 163/64
[2019-10-30 12:00] VITALS: BP 135/50
--- NOTE | 2019-10-30 14:50 | NUR ---
CALL PLACED TO YARELI WILLARD NUMBER PERSON ON FILE POA AND NEXT OF KIN TO OBTAIN CONSENT, AND REVIEW SURGICAL PACKET.NO ANSWER, LEFT MESSAGE.
[2019-10-30 16:00] VITALS: BP 139/61
--- NOTE | 2019-10-30 19:20 | NUR ---
DR. SZYMANSKI NOTIFIED OF POSITIVE BLOOD CULTURES FOR E-COLI. HE STATED HE WAS AWARE AND IT COULD BE FROM THE GALLBLADDER AND HE WANTS TO GET IT OUT. SURGERY IS SCHEDULED FOR TOMORROW.
[2019-10-30 20:00] VITALS: BP 156/69
[2019-10-31] VITALS (11 sets, daily range): BP systolic 111–188; BP diastolic 48–106
--- NOTE | 2019-10-31 07:00 | NUR ---
ARRIVED ON SHIFT,REPORT RECEIVED FROM OFF GOING NURSE, ASSUMED CARE OF PATIENT.
--- NOTE | 2019-10-31 07:07 | NUR ---
CALL PATIENTS JUNITO DOWNS LEFT VOICEMAIL FOR CALL BACK TO OBTAIN CONSENT FOR HER SURGERY TODAY.
[2019-10-31 07:18] LABS: BASO % 0.3 % (0.0-1.0); EOS # 0.1 10*3/uL (0.0-0.4); EOS % 1.6 % (1.0-4.0); HEMATOCRIT 33.7 % (37.0-47.0); LYMPH # 1.2 10*3/uL (1.3-4.4); LYMPH % 16.4 % (27.0-41.0); MEAN CELL VOLUME 91.3 fl (81.0-99.0); MEAN CORPUSCULAR HGB 30.4 pg (27.0-31.0); MEAN CORPUSCULAR HGB CONC 33.2 g/dl (33.0-37.0); MONO % 13.8 % (3.0-9.0); NEUT % 67.5 % (47.0-73.0); PLATELET COUNT AUTOMATED 145 10*3/uL (130-400); RED BLOOD COUNT 3.69 10*6/uL (4.10-5.10); RED CELL DISTRI WIDTH 13.2 % (0-14.5); WHITE BLOOD COUNT 7.4 10*3/uL (4.8-10.8)
--- NOTE | 2019-10-31 07:25 | NUR ---
INTRODUCED SELF TO PATIENT, BED IN LOW POSITION, WHEEL LOCKS ENGAGED, SIDE RAILS UP X 2 FOR TURNING AND REPOSITIONING, BED ALARM ON, CALL LIGHT WITHIN REACH, NO NEEDS VOICED AT THIS TIME, WHITE BOARD UPDATED.
[2019-10-31 07:42] LABS: ALBUMIN 2.7 gm/dl (3.1-4.5); ALKALINE PHOSPHATASE 140 U/L (45-117); BUN 8 mg/dl (7-24); CHLORIDE 104 mmol/L (98-107); CREATININE 0.54 mg/dL (0.55-1.02); POTASSIUM 3.1 mmol/L (3.5-5.1); SGOT/AST 30 IU/L (3-35); SGPT/ALT 136 U/L (12-78); SODIUM 137 mmol/L (136-145); TOTAL PROTEIN 6.4 gm/dL (6.4-8.2)
--- NOTE | 2019-10-31 08:20 | NUR ---
Shift chart check completed.
--- NOTE | 2019-10-31 08:28 | NUR ---
MADE ANOTHER CALL TO PATIENTS SON, NO ANSWER ADVISED SURGERY THAT I HAVE NOT OBTAINED CONSENT.
--- NOTE | 2019-10-31 08:58 | NUR ---
TAKEN TO SURGERY BY VAISHALI'Gabriele
--- NOTE | 2019-10-31 13:04 | NUR ---
PATIENT RETURNED FROM SURGERY
--- NOTE | 2019-10-31 14:45 | NUR ---
PT HAVING SURGERY TODAY. WILL ATTEMPT TO REACH FAMILY FOR DISCHARGE PLAN.
--- NOTE | 2019-10-31 14:51 | NUR ---
AUTOMOTIVE MAINTENANCE TECHNICIAN REACHED OUT TO THE PATIENTS SON. A MESSAGE WAS LEFT ASKING FOR A RETURN CALL.
--- NOTE | 2019-10-31 18:51 | NUR ---
PATIENT REPORTS DECREASED PAIN SINCE RECEIVING NORCO.
--- NOTE | 2019-10-31 22:20 | NUR ---
PATIENT STATES THAT SON YARELI IS HANDICAPPED AND THAT HE IS IN A [facility], ALSO THAT GRANDSON IS [employer] AND HIS INFO IS IN HER CHART.
--- NOTE | 2019-10-31 22:28 | NUR ---
PATIENT GIVEN TYLENOL AND MISSED DOSE OF REGLAN FOR PAIN AND NAUSEA. ENCOURAGED TO PASS GAS, GIVEN PILLOW SPLINT SUPPORT, & BASIN FOR EMESIS. PATIENT ALSO REPOSITIONED IN BED AND ENCOURAGED TO CALL FOR HELP. BED IN LOWEST, LOCKED POS.
--- NOTE | 2019-10-31 23:18 | NUR ---
PATIENT ABLE TO REST, NO COMPLAINTS. RESPIRATIONS EASY AND REGULAR ON 3.5L N C CALL LIGHT IN REACH. SCHEDULED ZOSYN GIVEN AT THIS TIME
[2019-11-01] VITALS: BP 152/68
[2019-11-01 06:24] LABS: BASO % 0.3 % (0.0-1.0); EOS # 0.1 10*3/uL (0.0-0.4); EOS % 1.1 % (1.0-4.0); HEMATOCRIT 32.3 % (37.0-47.0); LYMPH # 1.4 10*3/uL (1.3-4.4); LYMPH % 14.2 % (27.0-41.0); MEAN CELL VOLUME 92.8 fl (81.0-99.0); MEAN CORPUSCULAR HGB 30.7 pg (27.0-31.0); MEAN CORPUSCULAR HGB CONC 33.1 g/dl (33.0-37.0); MEAN PLATELET VOLUME 11.5 fl (9.6-12.3); MONO # 0.9 10*3/uL (0.1-1.0); MONO % 9.3 % (3.0-9.0); NEUT # 7.5 10*3/uL (2.3-7.9); NEUT % 74.5 % (47.0-73.0); PLATELET COUNT AUTOMATED 149 10*3/uL (130-400); RED BLOOD COUNT 3.48 10*6/uL (4.10-5.10); RED CELL DISTRI WIDTH 13.2 % (0-14.5)
[2019-11-01 06:52] LABS: ALBUMIN 2.5 gm/dl (3.1-4.5); BUN 9 mg/dl (7-24); CHLORIDE 100 mmol/L (98-107); CREATININE 0.51 mg/dL (0.55-1.02); POTASSIUM 3.2 mmol/L (3.5-5.1); SGOT/AST 72 IU/L (3-35); SGPT/ALT 105 U/L (12-78); SODIUM 135 mmol/L (136-145); TOTAL PROTEIN 6.2 gm/dL (6.4-8.2)
[2019-11-01 06:53] LABS: ALKALINE PHOSPHATASE 125 U/L (45-117)
[2019-11-01 08:00] VITALS: BP 184/82
--- NOTE | 2019-11-01 09:04 | NUR ---
PHYSICAL THERAPY Eval order received 10/29 by PCP pt s/p surgical procedure 10/30 spoke with nurse Loni to clarify with surgeon regarding PT for eval and treat for activity, per nurse will discusee with surgeon and clarify status. Sapphire Rizzo PT
[2019-11-01 12:00] VITALS: BP 173/70
--- NOTE | 2019-11-01 12:48 | NUR ---
ALEX RECEIVED NUMBER FROM MICROBIOLOGY INSTRUCTOR МАРИЯ. ALEX CONTACTED A GRANDSON CHRISTIANA [phone]. PER SURESH FIGUEROA, CHRISTIANA DOES NOT GET OFF WORK TIL 2:30/3PM. SHE STATED SHE IS NOT SURE WHAT THEY ARE WANTING FOR THE PATIENT. SHE WAS THE SURVEY CHIEF FOR THE PATIENT BUT PATIENT HAS NOT BEEN ABLE TO GET UP ON HER OWN LATELY. PER HER SHE STATED THAT PATIENTS SON IS CURRENTLY IN [facility].
--- NOTE | 2019-11-01 13:48 | NUR ---
TALKED WITH PT TODAY AND SHE WAS ABLE TO PROVIDE ME WITH ANOTHER NUMBER FOR HER GRANDSON CHRISTIANA AT [phone]. SHEARING SHED HAND CALLED ANDER VILLEDA AT WORK, SHE WILL TRY TO CALL HIM LATER ABOUT DISCHARGE PLAN.
--- NOTE | 2019-11-01 14:08 | NUR ---
PHYSICAL THERAPY Spoke with staff at 's office over phone, to continue with therapy. Attempted to see pt at the bedside for evaluation, somewhat lethargic difficulty keeping eyes open with conversation, on 3.5 L 02 NC 02 99% but HR only 50-54. Spoke with nursing regarding HR has been low and occasionally irregular, no hx in chart reg bradycardia. Deferred therapy at this time pt semi-lethargic low HR and overall "not feeling well" will follow in the AM Sapphire Rizzo PT
--- NOTE | 2019-11-01 14:40 | NUR ---
SPACE AND MISSILE OPERATIONS ATTEMPTED TO REACH PATIENT LIZ VILLEDA. HE STILL IS UNAVAILABLE AT THIS TIME.
--- NOTE | 2019-11-01 15:08 | NUR ---
DIGITAL COMPUTER OPERATOR ATTEMPTED TO REACH THE GRANDSON CHRISTIANA AGAIN. HE IS STILL NOT AVAILABLE. DIGITAL COMPUTER OPERATOR LEFT NUMBER FOR A RETURN CALL.
--- NOTE | 2019-11-01 15:16 | NUR ---
ALEX RECEIVED CALL BACK FROM PATIENTS GRANDSON. HE STATED THAT HIS DAD SHAHRZAD IS DPOA-HC AND IT WOULD BE HIS DECISION. HE STATED THAT THEY "OF COURSE" WOULD RATHER HER HOME BUT IT IS HIS DADS DECSION. ALEX CONFIRMED PHONE NUMBER FOR YARELI. ALEX EXPLAINED HAVE BEEN TRYING TO REACH HIM WITH NO ANSWER. CHRISTIANA STATED HE WOULD REACH OUT TO HIM AND PASS ALONG OUR NUMBER. CHRISTIANA STATED HE WOULD LET HIM KNOW WE ARE TRYING TO REACH HIM IN REGARDS TO THE PATIENT.
--- NOTE | 2019-11-01 15:27 | NUR ---
MORTGAGE UNDERWRITER RECEIVED CALL BACK FROM PATIENTS LIZ VILLEDA. HE STATED HIS DAD DOES WANT THE PATIENT TO GO GET THERAPY. MORTGAGE UNDERWRITER EXPLAINED PATIENTS INSURANCE AND ONLY IN NETWORK FACILITY [facility]. PATIENT LIZ STATED THAT WOULD BE FINE WITH THEM. MORTGAGE UNDERWRITER FAXED NEW REFERRAL TO [facility] FOR REVIEW. PATIENT REQUIRES PRECERT. WILL NEED PT/OT EVLS FOR PRECERT.
[2019-11-01 16:00] VITALS: BP 168/90
[2019-11-01 20:00] VITALS: BP 158/80; BP 170/80
--- NOTE | 2019-11-01 21:11 | NUR ---
NORCO GIVEN PER C/O ABDOMINAL PAIN. WILL CONT TO MONITOR.
--- NOTE | 2019-11-01 21:51 | NUR ---
PATIENT RESTING, EASY REG RESPIRATIONS ON 2L NC, NORCO APPEARS EFFECTIVE FOR PAIN
[2019-11-02] VITALS: BP 158/72
--- NOTE | 2019-11-02 00:23 | NUR ---
PATIENT PULLED UP AND REPOSITIONED IN BED.
[2019-11-02 08:00] VITALS: BP 130/68
--- NOTE | 2019-11-02 08:22 | NUR ---
ASSESSMENT COMPLETE AT THIS TIME WITH NO INCIDENCE. I DISCUSSED WITH THE PATIENT THAT SHE NEEDS TO TRY TO GET UP AND MOVING TODAY IN HOPES TO HELP HER BOWELS MOVE. SHE STATES THAT SHE IS HAVING ABDOMINAL PAIN, SPLINTINT OF THE ABDOMEN IS ENCOURAGED. BREAKFAST ORDERED AT THIS TIME. CALL LIGHT WITHIN REACH, WILL CONTINUE TO MONITOR
--- NOTE | 2019-11-02 09:57 | NUR ---
PHYSICAL THERAPY Evaluation attempted at bedside. Patient was unavailable currently eating breakfast. Nursing was consulted on patient status cleared for activity "needs to get up and moving". Evaluation will be attempted at a later time when patient is available. Sid Moe SPT Sapphire Rizzo PT
--- NOTE | 2019-11-02 11:00 | NUR ---
PHYSICAL THERAPY Physical Therapy evaluation completed on 5th floor with full evaluation to follow. Recommend physical therapy per plan of care and SNF upon discharge. Thank you for this referral. Sid Moe SPT Sapphire Rizzo PT
[2019-11-02 12:00] VITALS: BP 167/68
--- NOTE | 2019-11-02 14:07 | NUR ---
PRECERT IS REQUIRED FOR SNF PLACEMENT. PATIENT HAS BEEN ACCEPTED TO [facility]. WILL NEED OT EVAL TO COMPLETE AND START PRECERT.
--- NOTE | 2019-11-02 14:59 | NUR ---
IN PT ROOM AND SHE IS SLEEPING AT THIS TIME. APPEARS TO BE IN NO DISTRESS. HER RESPIRATIONS ARE RELAXED AND REGULAR. CALL LIGHT WITHIN REACH, WILL CONTINUE TO MONITOR
--- NOTE | 2019-11-02 15:32 | NUR ---
Occupational Therapy evaluation completed on 5E with full evaluation to follow. Recommend occupational therapy per plan of care and SNF upon discharge. Thank you for this referral. Rhea Her OTR/L
[2019-11-02 16:00] VITALS: BP 182/77
--- NOTE | 2019-11-02 17:36 | NUR ---
PRN TYLENOL PO GIVEN FOR COMPLAINTS OF HEADACHE, WILL MONITOR
--- NOTE | 2019-11-02 18:14 | NUR ---
TYLENOL EFFECTIVE, OT SLEEPING. WILL CONTINUE TO MONITOR
[2019-11-02 20:00] VITALS: BP 168/67
--- NOTE | 2019-11-02 23:10 | NUR ---
PATIENT'S B/P 196/98, HR IN THE 110'S AND C/O NAUSEA. DR. MARIANO NOTIFIED. NEW ORDERS FOR NORVASC 5MG DAILY STARTING NOW, ZOFRAN 8MG TID PRN AND CMP IN AM. WILL CONTIUE TO MONITOR. CALL LIGHT IN REACH.
--- NOTE | 2019-11-02 23:21 | NUR ---
PATIENT MEDICATED WITH NORVASC 5MG FOR B/P 196/98 AND ZOFRAN 8MG FOR C/O NAUSEA. WILL CONTINUE TO MONITOR. CALL LIGHT IN REACH.
[2019-11-03] VITALS: BP 196/98
--- NOTE | 2019-11-03 05:20 | NUR ---
PATIENT MEDICATED WITH TYLENOL FOR COMPLAINTS OF A HEADACHE. WILL MONITOR FOR EFFECTIVENESS. B/P AT THIS TIME 188/81. WILL CONTINUE TO MONITOR.
[2019-11-03 05:21] VITALS: BP 188/81
--- NOTE | 2019-11-03 06:20 | NUR ---
TYLENOL EFFECTIVE. PATIENT IN BED SLEEPING AT THIS TIME. NO SIGNS OR SYMPTOMS OF DISTRESS NOTED.
--- NOTE | 2019-11-03 07:03 | NUR ---
CABIN EQUIPMENT SUPERVISOR FAXED PT/OT EVALS TO [facility] AND ASKED TO HAVE PRECERT STARTED.
[2019-11-03 07:18] LABS: ALBUMIN 2.6 gm/dl (3.1-4.5); BUN 6 mg/dl (7-24); CHLORIDE 105 mmol/L (98-107); CREATININE 0.47 mg/dL (0.55-1.02); POTASSIUM 2.9 mmol/L (3.5-5.1); SGOT/AST 18 IU/L (3-35); SGPT/ALT 60 U/L (12-78); SODIUM 139 mmol/L (136-145)
[2019-11-03 07:20] LABS: ALKALINE PHOSPHATASE 110 U/L (45-117); TOTAL PROTEIN 6.6 gm/dL (6.4-8.2)
[2019-11-03 08:00] VITALS: BP 160/66
--- NOTE | 2019-11-03 08:05 | NUR ---
CLIENT CONSULTANT COMPLETED HENS.
--- NOTE | 2019-11-03 08:35 | NUR ---
ASSESSMENT COMPLETE. PT COMPLAINS OF NOT BEING COMFORTABLE AND HER NECK HURTING, SO SHE IS REPOSITIONED IN BED. BREAKFAST ORDERED AT THIS TIME. RESPIRATIONS APPEAR TO BE EASY AND RELAXED. CALL LIGHT IS WITHIN REACH OF THE PATIENT, WILL CONTINUE TO MONITOR
--- NOTE | 2019-11-03 09:52 | NUR ---
WHILE ATTEMPTING TO GIVE MEDICATIONS THAT WERE IN THE CUP, PT DROPPED MEDS. ALL MEDS ON THE FLOOR SO WERE NOT ABLE TO BE USED. DISCARDED MEDS APPROPRIATLY. CALLED PHARMACY AND THEY STATE TO PULL THE 1000 MEDICATIONS AGAIN, NOT THE NEXT SCHEDULED DOSE SO IT DOES NOT MESS UP NEXT MEDICATION PASS.
--- NOTE | 2019-11-03 10:03 | NUR ---
BYRON RN IN TO SHOW ME HOW TO PAGE THE MEDS THAT FELL "NONSCHEDULED". MEDICATIONS THAT FELL WERE FLUSHED DOWN THE TOILET. PT IS SITTING UP EATING BREAKFAST, PT/OT WAITING TO SEE PATIENT
--- NOTE | 2019-11-03 10:30 | NUR ---
PHYSICAL THERAPY Patient seen this am 1;1 for therapy visit and was resting supine in bed following breakfast. Patient identified by name / and presented with both continuos O2-2L via NC, IV treatment. Patient seemed a bit "sluggish" this morning, recording resting SpO2 97%, HR 63 bpm, then completed supine to sit EOB transfer with MIN A. Patient needed a few minutes of static EOB sit to collect herself, reporting c/o of lower abdominal pain / discomfort. Patient recorded seated SpO2 96%, HR 75 bpm. Patient tolerated several sit to stand transfers, MIN A, static standing balance x 1 minute first trial and 90 seconds second attempt. Patient reported decreased c/o of abdominal pain following treatment while returning to supine in bed, MOD A. Patient remained in bed with call light, tray table, telephone and bed alarm for safety. Will continue per POC as tolerated, total treatment time 16 minutes. Tavo Leo, SENIOR ORACLE SOA DEVELOPER
--- NOTE | 2019-11-03 10:44 | NUR ---
OT NOTE Pt seen this date 1:1 for 16 min session. Upon arrival pt supine in bed w bed alarm activated and receiving 2LO2 via NC which was only aligned into 1 nostril which was immediatly corrected. She had no c/o pain this date. Pt identified by name and . Pt presented to therapy w symptoms of being tired and also with heavy open mouthed breathing w verbal cues provided to correct both and provide encouragement throughout treatment w fair success. Supine in bed at rest pts SpO2 read 99% and HR 63 bpm. Transfer completed from supine to seated at EOB w Min A for UB mgmt w the head of the bed raised. Seated at EOB pts SpO2 read 96% and HR 75 bpm. Once seated at EOB pt had c/o abdominal pain which she was unable to rate on a scale of 0-10 along w dizziness resulting in education of visual fixation technique. After aprox 1 min pt had no c/o dizziness. She remained seated for aprox 3 min demonstrating F- sitting balance and education provided to correct posture and improve breathing technique w fair carry over. Sit to stand completed from bed level w Min A x2 CORPORATE FINANCIAL ANALYST where she maintained standing for aprox 90 sec before returning to seated at EOB w Min A x2 CORPORATE FINANCIAL ANALYST d/t quick onset of fatigue. Pt reported a decrease in abdominal pain after standing. She sat EOB for aprox 3 min w SBA for a rest break. Completed another sit <> stand w Min A x2 CORPORATE FINANCIAL ANALYST from bed level where she stood for aprox 30 sec before returning to seated d/t knee "giving out" followed by a 2 min rest break w SBA. One final sit <> stand completed from EOB w Min A x2 CORPORATE FINANCIAL ANALYST and completed two side steps to the L before returning to seated at EOB. Pt had complaints of feeling nauseous which quickly resolved after aprox 1 min. She returned to supine in bed w Min A. At end of session pt supine in bed w bed alarm activated, call light in reach and bedside table in place. Continue w current D/C to SNF. Gabriele Salazar/AARON Cordero/Erma
[2019-11-03 12:00] VITALS: BP 160/58
--- NOTE | 2019-11-03 12:52 | NUR ---
PT WILL GO TO [facility] WHEN PRECERT IS COMPLETED. WILL CONTINUE TO FOLLOW.
--- NOTE | 2019-11-03 13:52 | NUR ---
PRECERT IS ON HOLD UNTIL CAN SO THE PATIENTS BP IS STABLIZED.
[2019-11-03 16:00] VITALS: BP 164/52
--- NOTE | 2019-11-03 17:24 | NUR ---
PRN TYLENOL PO GIVEN FOR COMPLAINTS OF HEADACHE. WILL MONITOR
[2019-11-03 20:00] VITALS: BP 168/78
[2019-11-04] VITALS: BP 169/83
[2019-11-04 07:05] LABS: BUN 5 mg/dl (7-24); CHLORIDE 103 mmol/L (98-107); POTASSIUM 3.7 mmol/L (3.5-5.1); SODIUM 137 mmol/L (136-145)
[2019-11-04 08:00] VITALS: BP 184/82
--- NOTE | 2019-11-04 08:31 | NUR ---
JOURNALIST FAXED UPDATES TO [facility].
--- NOTE | 2019-11-04 09:39 | NUR ---
zofran given for nausea
[2019-11-04 09:40] VITALS: BP 174/92
[2019-11-04] MEDS ORDERED: KLOR-CON M2020 ME1 PO (10:00)
[2019-11-04] MEDS ORDERED: AMLODIPINE BESYL5 MG PO (10:00)
--- NOTE | 2019-11-04 10:05 | NUR ---
PHYSICAL THERAPY Patient seen this am 1:1 for therapy visit and was resting supine in bed upon therapist arrival. Patient identified by name / and presented with continuos O2-2L via NC, IV treatment. OT catering administrative assistant was also present for observation only this session as patient recorded SpO2 97%, HR 79 bpm. Patient transfers supine to sit EOB with MOD A, tolerating approx 12 minutes static EOB sit, needing v/c to maintain improved seated posture, including purse lip breathing technique. Patient recorded seated SpO2 97%, HR 75 bpm. Patient also performed several sit to stand transfers at bedside, MIN A x 2, tolerating approx 90 seconds first trial static stand, 1 minute second trial and < 1 minute third attempt. Patient recorded SpO2 99%, HR 84 bpm following standing ex and returned to supine in bed MOD A. Patient remained in bed with call light, tray table, telephone and bed alarm for safety. Will continue per POC as tolerated, total treatment time 18 minutes. Tavo Leo, BOOKKEEPERS SUPERVISOR
--- NOTE | 2019-11-04 10:08 | NUR ---
dr. taylor in to see patient, aware patient continues to be nauseated, attempted to eat breakfast, ate small amount, eating increased nausea
--- NOTE | 2019-11-04 10:27 | NUR ---
OT NOTE Pt seen this date 1:1 for 23 min session. Upon arrival pt supine in bed w bed alarm activated and receiving 2LO2 via NC which remained intact throughout the entire session. Pt identified by name and and had no complaints of pain this date however presented w symptoms of fatigue, anxiety d/t fear of falling, and shallow open mouthed breathing throughout session. Education provided for relaxation, energy conservation, and pursed lip breathing w poor followthrough. At rest supine in bed pts SpO2 read 97% and HR 80 bpm. Pt transferred from supine in bed to seated at EOB w Mod A for UB and LB. Pt maintained sitting at EOB throughout session for a total of 10 min w SBA demonstrating good static sitting balance. Completed 3 sit <> stands from bed level w Min A ADVERTISING TEACHER for the first 2 and CGA ADVERTISING TEACHER for the third. The first stand pt maintained standing for aprox 90 sec w CGA ADVERTISING TEACHER x2 before returning to seated d/t quick onset of fatigue. Second stand was maintained for aprox 1 min w CGA ADVERTISING TEACHER x2 before returning to seated d/t quick onset of fatigue. The third stand was maintained for less than 1 min w Min A x2 ADVERTISING TEACHER before returning to seated d/t quick onset of fatigue. Pt returned to supine in bed w Mod A x2. At end of session pt supine in bed receiving 2LO2 via NC w bed alarm activated, call light in reach and bedside table in place. Continue w current D/C to SNF. Gabriele Salazar/AARON Cordero/Erma
--- NOTE | 2019-11-04 11:00 | NUR ---
pt states nausea medication now effective
[2019-11-04 12:00] VITALS: BP 178/73
--- NOTE | 2019-11-04 12:44 | NUR ---
pt sleeping, no distress noted
--- NOTE | 2019-11-04 12:47 | NUR ---
DR MARIANO AWARE THAT PRECERT IS ON HOLD UNTIL PT BP IS STABLELIZED.
--- NOTE | 2019-11-04 13:52 | NUR ---
PHYSICAL THERAPY CO-SIGN I approve of the Physical Therapy notes written above. Sapphire Rizzo PT
--- NOTE | 2019-11-04 14:11 | NUR ---
OCCUPATIONAL THERAPY CO-SIGN I approve of the Occupational Therapy notes written above. Rhea Her OTR/L
--- NOTE | 2019-11-04 15:35 | NUR ---
PT HAD VERY LARGE BM, INCONTINENT OF BOWEL AND BLADDER.
[2019-11-04 16:00] VITALS: BP 176/75
--- NOTE | 2019-11-04 17:00 | NUR ---
TYLENOL GIVEN FOR TEMP OF 100.1. WILL MONITOR
[2019-11-04 20:00] VITALS: BP 153/63
--- NOTE | 2019-11-04 20:00 | NUR ---
PATIENT ASSESSMENT COMPLETED AT THIS TIME WITHOUT INCIDENT. PATIENT DENIES ANY PAIN, DISCOMFORT OR DIFFICULTY BREATHING AT THIS TIME. NASAL CANNULA 2LPM INTACT AT THIS TIME. IV FLUIDS INFUSING WITHOUT INCIDENT. CALL LIGHT WITHIN REACH, WILL CONTINUE TO MONITOR.
--- NOTE | 2019-11-04 21:31 | NUR ---
PRN NORCO GIVEN AT THIS TIME FOR PATIENT COMPLAINT OF GENERALIZED PAIN 10/20. A&O X3, CALL LIGHT WITHIN REACH WILL CONTINUE TO MONITOR.
--- NOTE | 2019-11-04 22:15 | NUR ---
PATIENT RESTING IN BED AT THIS TIME IN A POSITION OF COMFORT. NO SIGNS OR SYMPTOMS OF PAIN NOTED AT THIS TIME. CALL LIGHT WITHIN REACH WILL CONTINUE TO MONITOR.
[2019-11-05] VITALS: BP 145/68
[2019-11-05 06:21] LABS: BUN 5 mg/dl (7-24); CHLORIDE 103 mmol/L (98-107); CREATININE 0.44 mg/dL (0.55-1.02); POTASSIUM 3.5 mmol/L (3.5-5.1); SODIUM 137 mmol/L (136-145)
[2019-11-05 08:00] VITALS: BP 170/78
--- NOTE | 2019-11-05 09:23 | NUR ---
Patient admitted for elevated Transaminase level, Cholecystitis IV: located in right arm, normal saline, 60 ml/hr. No s/s infection/infiltration Neuro: A&O x3, uses walker and cane Resp: lung sounds diminished, non-productive cough, 2L NC GI: reg. diet, active bowel sounds, patient does not remember last bowel movement, Skin: 5 sites on abdomen, all intact - scabbed, red/purple in color, no pain : no pain or burning during urination Patient reports no pain Cardio: no edema present, skin temp cool to the touch bilateral Musculo: no weakness or numbness reported Vital Signs: BP 180/81, Manual 170/78-Diana aware of BP Temp 98.3 O2 97 nc Reps 19 HR 62 Liz Florian-Student/Alesha BUI
[2019-11-05 16:00] VITALS: BP 193/85
[2019-11-05 20:00] VITALS: BP 124/86
--- NOTE | 2019-11-05 20:20 | NUR ---
PATIENT ASSESSMENT COMPLETED WITHOUT INCIDENT.IV FLUIDS INFUSING VIA PERIPHERAL IV WITHOUT INCIDENT AT THIS TIME. PATIENT DENIES ANY CHEST PAIN, SHORTNESS OF BREATH OR OTHER DISTRESS AT THIS TIME. CALL LIGHT WITHIN REACH, WILL CONTINUE TO MONITOR.
[2019-11-06] VITALS: BP 159/64
--- NOTE | 2019-11-06 00:15 | NUR ---
PATIENT RESTING IN BED IN A POSITION OF COMFORT AT THIS TIME WITH EYES CLOSED, NO DISTRESS NOTED AT THIS TIME, IV FLUIDS INFUSING WITHOUT INCIDENT. CALL LIGHT WITHIN REACH WILL CONTINUE TO MONITOR.
--- NOTE | 2019-11-06 05:09 | NUR ---
24 HOUR CHART CHECK COMPLETE
[2019-11-06 07:07] LABS: BUN 5 mg/dl (7-24); CHLORIDE 101 mmol/L (98-107); CREATININE 0.39 mg/dL (0.55-1.02); POTASSIUM 3.3 mmol/L (3.5-5.1); SODIUM 135 mmol/L (136-145)
[2019-11-06 08:00] VITALS: BP 152/80; BP 159/68
--- NOTE | 2019-11-06 08:00 | NUR ---
PATIENT ASLEEP LAYING IN BED. NO S/S OF SOB OR DISTRESS NOTED. 2L O2 NASAL CANNULA INTACT. BED IN LOWEST LOCKED POSITION AND CALL LIGHT WITHIN REACH
--- NOTE | 2019-11-06 09:30 | NUR ---
PATIENT AWAKE, ALERT AND ORIENTED SITTING UP IN BED. SHE IS ENCOURAGE TO EAT BREAKFAST. MEDICATIONS ADMINISTERED AT THIS TIME WITHOUT INCIDENT. NO STATED COMPLAINTS. DENIES PAIN. RESPIRATIONS ARE EASY AND REGULAR, 2L NC INTACT. PT CAN REPOSITION SELF AND IS ENCOURAGED TO DO SO. BED IN LOWEST LOCKED POSITION AND CALL LIGHT WITHIN REACH.
[2019-11-06 11:30] VITALS: BP 132/60
[2019-11-06 12:00] VITALS: BP 132/52
[2019-11-06 16:00] VITALS: BP 140/62
[2019-11-06 20:00] VITALS: BP 135/59
[2019-11-07] VITALS: BP 157/65
--- NOTE | 2019-11-07 02:31 | NUR ---
PT ASLEEP IN BED. NO S/S OF DISTRESS NOTED. O2 IN USE VIA 2L NC. IVF INFUSING PER ORDER. WILL MONITOR. CALL LIGHT IN REACH. BED ALARM INTACT.
[2019-11-07 05:15] VITALS: BP 158/70
--- NOTE | 2019-11-07 05:21 | NUR ---
PT ASLEEP, EASILY AROUSABLE. PT REMAINS DROWSY, EVEN WHEN AWAKE. PT TOOK SCHEDULED AM PILLS WITHOUT ISSUE. PT ASSISTED TO REPOSITION ON L SIDE USING PILLOW. WILL MONITOR. CALL LIGHT IN REACH. BED ALARM INTACT.
[2019-11-07 08:00] VITALS: BP 137/50
--- NOTE | 2019-11-07 08:00 | NUR ---
IN TO ROOM. PATIENT ASLEEP BUT AROUSES EASILY. NO STATED COMPLAINTS AT THIS. DENIES PAIN. PT IS DROWSY AND FALLS ASLEEP FREQUENTLY DURING ASSESSMENT. RESPIRATIONS ARE EASY AND REGULAR. 2L O2 INTACT. PT CAN REPOSITION SELF IN BED AND IS ENCOURAGED TO DO SO. BED IN LOWEST LOCKED POSITION AND CALL LIGHT WITHIN REACH. WILL CONTINUE TO MONITOR.
--- NOTE | 2019-11-07 08:45 | NUR ---
PHYSICAL THERAPY Patient seen this am 1;1 for therapy visit and was resting supine in bed upon therapist arrival. Patient identified by name / and presented with continuous IV treatment, O2-2L via NC. Patient recorded SpO2 100%, HR 62 bpm and was joined by OT hospital aides and assistants teacher for observation only this session. Patient voices no new c/o's and transfers supine to sit EOB with MOD A x 1. Patient demonstrated increased generalized muscle weakness, tolerating static EOB sit x 8 minutes, SBA x 1, needing v/c to improve upright seated posture. Patient also completed several sit to stand transfers, MIN/HOSPITAL RECEIVING CLERK, tolerating approx 2 minutes static stand first trial and 90 seconds second trial. Patient fatigues quickly, requiring v/c to improve upright standing posture, secondary to increased B knee flexion. Patient also able to take 2-3 side steps to L side for pre positioning and returned to supine in bed MOD A. Patient remained in bed with call light, tray table and bed alarm. Will continue per POC as tolerated, total treatment time 14 minutes. Tavo Leo, DRUPAL DEVELOPER
--- NOTE | 2019-11-07 09:00 | NUR ---
OT NOTE Pt was seen this A.M. 1:1 for 20 minute OT session. Upon arrival pt was supine in bed. Pt identified by name and and had no complaints at this time. Pt presented to therapy with continuous 2L-O2 via NC which she remained on throughout the entire session and IV running to [facility]. Pt's resting SpO2 reading 100% and heart rate 62 bpm. Pt transferred supine to sit EOB with modA for assist with both upper body and lower body. Upon inital rise to the EOB pt had complaints of feeling dizzy, educated on visual fixation technique and had no other complaints after aprox 30 seconds. Challenged pt's dynamic sitting balance while weight shifting, crossing midline, and reaching over all planes and pt was able to maintain G- sitting balance. Pt then completed sit to stand transfer from bed level with Tay X 2. Challenged pt's static standing tolerance needed for increased I in self care tasks and functional transfers, pt was able to tolerate aprox 2 minutes before sitting due to fatigue. Throughout static stand pt presented with retrograde posture that required min-modA to correct. Attempted second sit to stand which pt again completed with Tay X 2 however provided pt with w/w for UE support. Challenged pt's static standing tolerance and pt was able to tolerate aprox 90 seconds and presented with no retrograde posture with use of the w/w. Pt then transferred sit to supine with Tay. There she was left with call light in hand, tray table in place, and bed alarm activated for safety. Continue with rec D/C plan to SNF. JOCELINE Fletcher
--- NOTE | 2019-11-07 09:21 | NUR ---
OYSTER CULTURIST FAXED UPDATES TO [facility] AND ASKED FOR PRECERT TO BE STARTED.
--- NOTE | 2019-11-07 10:45 | NUR ---
Outbound Sales Executive in to see patient. No new needs or request. When medically stable and precert is received she will be discharged to [facility]. buffing line set up worker following.
[2019-11-07 12:00] VITALS: BP 127/54
[2019-11-07 16:00] VITALS: BP 124/56
[2019-11-07 20:00] VITALS: BP 147/62
[2019-11-08] VITALS: BP 136/57
[2019-11-08 05:30] VITALS: BP 156/70
[2019-11-08 08:00] VITALS: BP 140/47
--- NOTE | 2019-11-08 08:30 | NUR ---
Patient resting quietly with no c/o discomfort. Respirations easy and regular. Vital signs stable. No overt distress. MOHSEN BOUDREAXU R
--- NOTE | 2019-11-08 08:52 | NUR ---
AUTH HAS BEEN OBTAINED. THE PATIENT CAN GO TO [facility] IF MEDICALLY STABLE.
--- NOTE | 2019-11-08 10:20 | NUR ---
O2 REMOVED PER DR MARIANO'S REQUEST, PT DOES NOT USE AT HOME. STAT OF 98% WITH 2L. ONE HOUR LATER O2 STAT OF 94% NO DISTRESS NOTED. WILL MONITOR
--- NOTE | 2019-11-08 10:49 | NUR ---
ROTARY BAR OPERATOR SPOKE WITH HAO HANSEN. ROTARY BAR OPERATOR SPOKE WITH ANABEL ENCINAS AND ARRANGED FOR A 2PM TRANSPORT FOR THE PATIENT TO GO TO [facility]. ROTARY BAR OPERATOR NOTIFIED DAMION MCNAIR, [facility], AND DAVID LIZ VILLEDA VIA VOICE MESSAGE OF THE TRANSPORT TIME. ROTARY BAR OPERATOR TO FAX DISCHARGE ORDERS TO [facility].
[2019-11-08 12:00] VITALS: BP 108/53
--- NOTE | 2019-11-08 13:28 | NUR ---
OT NOTE Attempted to see pt this P.M. for OT session. Upon arrival pt was under nursing care for removal of IV site. Nurse reported that pt is being discharged this afternoon. JOCELINE Fletcher
--- NOTE | 2019-11-08 14:10 | NUR ---
Discharge instructions reviewed with patient/family. Patient receptive and verbalizes understanding. Follow-up care arranged. Written instructions given to patient/family. MOHSEN BOUDREAUX
--- NOTE | 2019-11-08 14:24 | NUR ---
REPORT CALLED TO [facility].
--- NOTE | 2019-11-09 08:03 | NUR ---
OCCUPATIONAL THERAPY CO-SIGN I approve of the Occupational Therapy notes written above. ADAM LOUIS, OTR/L
--- NOTE | 2019-11-09 08:55 | NUR ---
PHYSICAL THERAPY CO-SIGN I approve of the Physical Therapy notes written above. KAVITHA YARBROUGH PT, DPT
== END 2019-11-08 14:24 | disposition other institution (70) | DRG 417 ==
LOC: ED 14:50 → 5E 23:18 → EDHOLD 23:18 → 5E 23:25
PROVIDERS: Emergency Medicine; Internal Medicine; ADMIT Internal Medicine
PROC: 0FT44ZZ Resection of Gallbladder, Percutaneous Endoscopic Approach (ICD-10-PCS; principal; 2019-10-31)
DX: K80.63 Calculus of gallbladder and bile duct with acute cholecystitis with obstruction (principal); E43 Unspecified severe protein-calorie malnutrition; N39.0 Urinary tract infection, site not specified; I50.42 Chronic combined systolic (congestive) and diastolic (congestive) heart failure; J96.10 Chronic respiratory failure, unspecified whether with hypoxia or hypercapnia; Z68.1 Body mass index [BMI] 19.9 or less, adult; R74.0 Nonspecific elevation of levels of transaminase and lactic acid dehydrogenase [LDH]; K44.9 Diaphragmatic hernia without obstruction or gangrene; E87.6 Hypokalemia; J44.9 Chronic obstructive pulmonary disease, unspecified; I11.0 Hypertensive heart disease with heart failure; E55.9 Vitamin D deficiency, unspecified; K59.09 Other constipation; I08.1 Rheumatic disorders of both mitral and tricuspid valves; E78.2 Mixed hyperlipidemia; K21.0 Gastro-esophageal reflux disease with esophagitis; I25.10 Atherosclerotic heart disease of native coronary artery without angina pectoris; Z95.1 Presence of aortocoronary bypass graft; Z98.42 Cataract extraction status, left eye; Z90.710 Acquired absence of both cervix and uterus; Z82.49 Family history of ischemic heart disease and other diseases of the circulatory system; Z79.899 Other long term (current) drug therapy; Z79.82 Long term (current) use of aspirin; Z20.828 Contact with and (suspected) exposure to other viral communicable diseases

== ENCOUNTER 2020-03-31 01:19 | Emergency (ER) | payer OTHER ==
[~2020-03-31] VITALS: Wt 57.6 kg
[~2020-03-31 01:19] MED LIST changes: +AMLODIPINE BESYL5 MG PO; +ATENOLOL25 MG PO; +COLACE100 MG PO; +KLOR-CON M2020 ME1 PO
[2020-03-31 03:18] LABS: BASO % 0.4 % (0.0-1.0); EOS # 0.1 10*3/uL (0.0-0.4); EOS % 1.5 % (1.0-4.0); HEMATOCRIT 39.1 % (37.0-47.0); LYMPH # 2.4 10*3/uL (1.3-4.4); LYMPH % 25.4 % (27.0-41.0); MEAN CELL VOLUME 92.4 fl (81.0-99.0); MEAN CORPUSCULAR HGB 29.8 pg (27.0-31.0); MEAN CORPUSCULAR HGB CONC 32.2 g/dl (33.0-37.0); MEAN PLATELET VOLUME 10.7 fl (9.6-12.3); MONO # 0.9 10*3/uL (0.1-1.0); MONO % 9.2 % (3.0-9.0); NEUT # 5.9 10*3/uL (2.3-7.9); NEUT % 63.3 % (47.0-73.0); PLATELET COUNT AUTOMATED 224 10*3/uL (130-400); RED BLOOD COUNT 4.23 10*6/uL (4.10-5.10); RED CELL DISTRI WIDTH 13.2 % (0-14.5); WHITE BLOOD COUNT 9.3 10*3/uL (4.8-10.8)
[2020-03-31 03:34] LABS: ALBUMIN 3.7 gm/dl (3.1-4.5); ALKALINE PHOSPHATASE 93 U/L (45-117); BUN 22 mg/dl (7-24); CHLORIDE 109 mmol/L (98-107); CREATININE 0.69 mg/dL (0.55-1.02); LIPASE 118 U/L (73-393); POTASSIUM 3.9 mmol/L (3.5-5.1); SGOT/AST 17 IU/L (3-35); SGPT/ALT 17 U/L (12-78); SODIUM 140 mmol/L (136-145); TOTAL PROTEIN 7.7 gm/dL (6.4-8.2)
[2020-03-31 04:12] LABS: BILIRUBIN Negative (Negative); BLOOD Negative (Negative); CLARITY Clear (Clear); COLOR Yellow (Yellow); GLUCOSE Negative (Negative); KETONE Negative (Negative); LEUKO ESTERASE Trace (Negative); NITRITE Negative (Negative); PH 7.5 (4.5-8.0); SPECIFIC GRAVITY <= 1.005 (1.001-1.030); UROBILINOGEN 0.2 E.U./dl (0.0-1.0)
[2020-03-31 04:34] LABS: RBC 0-2 rbc/hpf (0-2)
[2020-03-31 04:35] LABS: BACTERIA 3+; EPITHELIAL CELLS 0-2
[2020-03-31 05:02] VITALS: BP 154/85
== END 2020-03-31 05:36 | disposition home or self-care (01) ==
LOC: ED 01:19
PROVIDERS: Emergency Medicine
DX: R19.7 Diarrhea, unspecified (principal); R10.32 Left lower quadrant pain

== ENCOUNTER 2021-08-16 16:52 | Inpatient (IN) | payer MEDICARE ==
[~2021-08-16] VITALS: Ht 167.6 cm; Wt 51.9 kg
[2021-08-16 17:23] VITALS: BP 155/80
[2021-08-16 18:23] LABS: BASO # 0.1 10*3/uL (0.0-0.1); BASO % 0.6 % (0.0-1.0); EOS # 0.2 10*3/uL (0.0-0.4); EOS % 2.4 % (1.0-4.0); HEMATOCRIT 37.2 % (37.0-47.0); LYMPH # 1.5 10*3/uL (1.3-4.4); LYMPH % 14.7 % (27.0-41.0); MEAN CELL VOLUME 98.7 fl (81.0-99.0); MEAN CORPUSCULAR HGB 31.6 pg (27.0-31.0); MEAN PLATELET VOLUME 10.5 fl (9.6-12.3); MONO % 10.2 % (3.0-9.0); NEUT # 7.2 10*3/uL (2.3-7.9); NEUT % 71.8 % (47.0-73.0); PLATELET COUNT AUTOMATED 278 10*3/uL (130-400); RED BLOOD COUNT 3.77 10*6/uL (4.10-5.10); RED CELL DISTRI WIDTH 14.3 % (0-14.5)
[2021-08-16 18:34] LABS: ALKALINE PHOSPHATASE 126 U/L (45-117); BUN 18 mg/dl (7-24); CHLORIDE 105 mmol/L (98-107); CREATININE 0.67 mg/dL (0.55-1.02); POTASSIUM 3.8 mmol/L (3.5-5.1); SGOT/AST 31 IU/L (3-35); SGPT/ALT 29 U/L (12-78); SODIUM 137 mmol/L (136-145); TOTAL PROTEIN 6.9 gm/dL (6.4-8.2)
[2021-08-16 18:39] LABS: ACT PARTIAL THROMBO TIME 28.2 SECONDS (20.0-32.1); INTERNATIONAL NORM RATIO 1.2 (2.0-3.5)
[2021-08-16 18:44] VITALS: BP 163/80
[2021-08-16 20:48] VITALS: BP 165/89
[2021-08-16 21:00] VITALS: BP 151/91
[2021-08-16] MEDS ORDERED: NORVASC2.5 MG PO (21:51)
[2021-08-16] MEDS ORDERED: GABAPENTIN100 M2 PO (21:52)
[2021-08-17] VITALS: BP 160/85
[2021-08-17 05:40] LABS: BUN 15 mg/dl (7-24); CHLORIDE 102 mmol/L (98-107); POTASSIUM 3.1 mmol/L (3.5-5.1); SODIUM 141 mmol/L (136-145)
[2021-08-17 08:00] VITALS: BP 168/82
[2021-08-17 12:00] VITALS: BP 165/88
[2021-08-17 16:00] VITALS: BP 132/90
[2021-08-17 20:00] VITALS: BP 155/88
[2021-08-18] VITALS: BP 160/79
[2021-08-18 05:31] LABS: BUN 14 mg/dl (7-24); CHLORIDE 98 mmol/L (98-107); CREATININE 0.57 mg/dL (0.55-1.02); POTASSIUM 3.7 mmol/L (3.5-5.1); SODIUM 137 mmol/L (136-145)
[2021-08-18 08:00] VITALS: BP 128/94
[2021-08-18 12:00] VITALS: BP 131/86
[2021-08-18 16:00] VITALS: BP 132/78
== END 2021-08-18 17:49 | disposition home or self-care (01) | DRG 291 ==
LOC: ED 16:52 → EDHOLD 19:51 → 4E 20:39
PROVIDERS: Nurse Practitioner Family; ADMIT Internal Medicine; ATTEND Internal Medicine
DX: I50.43 Acute on chronic combined systolic (congestive) and diastolic (congestive) heart failure (principal); E43 Unspecified severe protein-calorie malnutrition; Z68.1 Body mass index [BMI] 19.9 or less, adult; E87.6 Hypokalemia; K44.9 Diaphragmatic hernia without obstruction or gangrene; R26.2 Difficulty in walking, not elsewhere classified; I25.10 Atherosclerotic heart disease of native coronary artery without angina pectoris; J44.9 Chronic obstructive pulmonary disease, unspecified; I27.81 Cor pulmonale (chronic); K21.00 Gastro-esophageal reflux disease with esophagitis, without bleeding; E78.2 Mixed hyperlipidemia; Z82.49 Family history of ischemic heart disease and other diseases of the circulatory system; Z95.1 Presence of aortocoronary bypass graft; Z90.49 Acquired absence of other specified parts of digestive tract; Z79.899 Other long term (current) drug therapy